=== PATIENT | male | born 1955 | race Caucasian/White ===

== ENCOUNTER → 2020-01-04 09:17 | Outpatient (BNVA) | payer MEDICARE, BC, SELFPAY | PROVIDERS: PCP Family Medicine; Referring Provider Family Medicine; Visit Provider Physical Therapy Assistant | DX: Z12.11 Encounter for screening for malignant neoplasm of colon (principal) ==

== ENCOUNTER 2020-01-11 09:53 | Day surgery (SDC) | payer MEDICARE, BC, SELFPAY ==
[2020-01-11 10:13] VITALS: BP 110/81; PULSE 88; RESP 16; TEMP 36.7; O2SAT 99
[2020-01-11] MEDS: Lactated Ringers 1,000 ML 80 ML IV (10:54)
--- NOTE | 2020-01-11 12:49 | BOWEL_PTH ---
PATIENT: Dawit Guillory LOC: [facility] U#:[id number] AGE/SX: 64/M ROOM: RE01/11/[address]: Nory Villalobos : 1955 BED: DIS: 01/11/2020 SPEC #: [id number] RECD: 01/11/20 15:32 STATUS: CAROLINE REQ #: [id number] BENOIT: 01/11/20 12:[address]: Nory Villalobos DEPT: Surgical Specimen RECD BY: Kristen Delgado ENTERED: 01/11/20 15:35 SP TYPE: Bowel OTHR DR: Power Collins MD Tissues: 1 - BIOPSY BOWEL Procedures: GROSS AND MICRO LEVEL 4 Comments: [id number]
--- NOTE | 2020-01-11 13:03 | W.COLOREPORT ---
Date of service: 01/11/20 Time of Service: 13:03 Colonoscopy Report Date of procedure: 01/11/20 Pre-op diagnosis general: CRC screen Post-op diagnosis procedure note: other Procedure: CE w/cold polypectomy Surgeon: Nory Villalobos Anesthesia proc note operative: MAC Estimated blood loss (mL): 1 Pathology: other Complications: None Disposition: same day Prep: Miralax/Dulcolax Retraction Time: 12mins Procedure Description: After informed consent was obtained the patient was taken to the procedure room and placed in a left decubitous position. Monitors were applied and a time out was done. The patients name, date of , procedure, allergies to medications and metal in their body was reviewed. The patient was then sedated. Once sedated and comfortable a rectal exam was done. External exam was normal. Internal exam revealed a normal sphincter tone and no palpable masses. The prostate nl. The scope was then introduced and retrofelexed. no internal hemorrhoids were identified. The scope was then advanced to the cecum w/o difficulty. The TI and appendiceal orifice were identified. The prep was adequate. The scope was then slowly retracted over 12 minutes back into the rectum. Polyps were removed at rectum-it is removed with a cold biting forcep. All specimen is retrieved and no bleeding is noted. He does have moderate diverticula confined to the sigmoid colon. There is no signs of active bleeding or infection. The rest of the mucosa is pink and healthy.. The scope was removed and the patient was woken up and taken back to Same day surgery in stable condition. The patient tolerated the procedure well and there were no immediate complications. Follow up: The patient should follow up in 5-10years, path pd unless they develop changes in bowel habits or other new gastrointestinal complaints.
--- NOTE | 2020-01-11 13:05 | PDOC.DSDIS_ITS ---
Discharge Plan Disposition Patient Disposition: HOME Condition: Good Discharge Details Reason For Visit: colon scope Attending Provider: Nory Villalobos Primary Care Provider: Power Collins Home Meds and New Rx's Prescriptions: Continued tamsulosin 0.4 mg capsule 0.8 mg PO DAILY Qty: 180 RF: 3 venlafaxine [Effexor XR] 75 mg capsule,extended release 24hr 75 mg PO DAILY Qty: 90 RF: 3 acetaminophen [Tylenol Extra Strength] 500 mg tablet 500 mg PO Q6H PRNRF: 0 ibuprofen 200 mg capsule 200 mg PO Q6H PRNRF: 0 sildenafil [Viagra] 100 mg tablet 100 mg PO daily prn Qty: 30 RF: 5 alprazolam [Xanax] 1 mg tablet 1 mg PO daily prn Qty: 30 RF: 2 dextroamphetamine-amphetamine 10 mg capsule,extended release 24hr 10 - 20 mg PO BID MDD 3 tabs Qty: 90 RF: 0 Discharge Instructions Additional Instructions: Findings: diverticula and small polyp Follow up: We will send you a letter with the results of the pathology in 2 to 3 weeks. Please call if you develop: fevers >101.5 Nausea or Vomiting Abdominal pain that is not transient DAY SURGERY UNIT POST COLONOSCOPY INSTRUCTIONS 1. Because there will be medication in your system for the next 24 hours, you may feel a little sleepy. Your coordination will be affected. Therefore: a. Do not drive or operate dangerous equipment for 24 hours. b. Do not drink alcohol beverages for 24 hours (not even beer). c. Plan to go home and rest for the day. 2. Generally there are no restrictions on your activity after a day or so has gone by, but you may feel a bit fatigued for a few days. 3 After you arrive home you may have a light meal and return to a normal diet as you can tolerate it without feeling sick to your stomach. 4. After surgery, you may feel pain or discomfort. This should be only transient, but if it persists please contact your doctor. 5. If there are any questions regarding the findings of your procedure, please feel free to contact your doctor. 6. If you are unable to contact your doctor with a problem, contact the hospital at [phone]. 7. Continue all your regular medications unless directed otherwise. I understand the above instructions and have no questions. Signature of Patient or Responsible Adult Escort Date/Time Name of Responsible Adult Escort Signature of Nurse Date/Time DIVERTICULAR DISEASE OVERVIEW ? A diverticulum is a pouch-like structure that can form through points of weakness in the muscular wall of the colon (ie, at points where blood vessels pass through the wall). Diverticulosis affects men and women equally. The risk of diverticular disease increases with age. It occurs throughout the world but is seen more commonly in developed countries. WHAT IS DIVERTICULAR DISEASE? Diverticulosis ? Diverticulosis merely describes the presence of diverticula. Diverticulosis is often found during a test done for other reasons, such as flexible sigmoidoscopy, colonoscopy, or barium enema. Most people with diverticulosis have no symptoms and will remain symptom free for the rest of their lives. A person with diverticulosis may have diverticulitis, or diverticular bleeding. Diverticulitis ? Inflammation of a diverticulum (diverticulitis) occurs when there is thinning and breakdown of the diverticular wall. This may be caused by increased pressure within the colon or by hardened particles of stool, which can become lodged within the diverticulum. The symptoms of diverticulitis depend upon the degree of inflammation present. The most common symptom is pain in the left lower abdomen. Other symptoms can include nausea and vomiting, constipation, diarrhea, and urinary symptoms such as pain or burning when urinating or the frequent need to urinate. Diverticulitis is divided into simple and complicated forms. ?Simple diverticulitis, which accounts for 75 percent of cases, is not associated with complications and typically responds to medical treatment without surgery. ?Complicated diverticulitis occurs in 25 percent of cases and usually requires surgery. Complications associated with diverticulitis can include the following: ?Abscess ? a localized collection of pus ?Fistula ? an abnormal tract between two areas that are not normally connected (eg, bowel and bladder) ?Obstruction ? a blockage of the colon ?Peritonitis ? infection involving the space around the abdominal organ ?Sepsis ? overwhelming body-wide infection that can lead to failure of multiple organs Diverticular bleeding ? Diverticular bleeding occurs when a small artery located within a diverticulum is eroded and bleeds into the colon. Diverticular bleeding usually causes painless bleeding from the rectum. In approximately 50 percent of cases, the person will see maroon or bright red blood with bowel movements. Is bleeding with a bowel movement normal? ? It is not normal to see blood in a bowel movement; this can be a sign of several conditions, most of which are not serious (eg, hemorrhoids) but some of which are serious and require immediate treatment. Anyone who sees blood after a bowel movement should consult with their healthcare provider to determine if further testing or evaluation is needed. DIVERTICULOSIS AND DIVERTICULITIS DIAGNOSIS ? Diverticulosis is often found during tests performed for other reasons. ?Barium enema ? This is an x-ray study that uses barium in an enema to view the outline of the lower intestinal tract. This is an older test and has been largely replaced by computed tomography (CT) scan. ?Flexible sigmoidoscopy ? This is an examination of the inside of the sigmoid colon with a thin, flexible tube that contains a camera. ?Colonoscopy ? This is an examination of the inside of the entire colon. ?CT scan ? A CT scan is often used to diagnose diverticulitis and its complications. If diverticulitis (not just diverticulosis) is suspected, the above three tests should not be used because of the risk of perforation. TREATMENT Diverticulosis ? People with diverticulosis who do not have symptoms do not require treatment. However, most clinicians recommend increasing fiber in the diet, which can help to bulk the stools and possibly prevent the development of new diverticula, diverticulitis, or diverticular bleeding. Fiber is not proven to prevent these conditions in all patients but may help to control recurrent episodes in some. Increase fiber ? Fruits and vegetables are a good source of fiber. Fiber content of packaged foods can be calculated by reading the nutrition label. Seeds and nuts ? Patients with diverticular disease have historically been advised to avoid whole pieces of fiber (such as seeds, corn, and nuts) because of concern that these foods could cause an episode of diverticulitis. However, this belief is completely unproven. We do not suggest that patients with diverticulosis avoid seeds, corn, or nuts. Diverticulitis ? Treatment of diverticulitis depends upon how severe your sympt oms are. Home treatment ? If you have mild symptoms of diverticulitis (mild abdominal pain, usually left lower abdomen), you can be treated at home with a clear liquid diet and oral antibiotics. However, if you develop one or more of the following signs or symptoms, you should seek immediate medical attention: ?Temperature >100.1?F (38?C) ?Worsening or severe abdominal pain ?An inability to tolerate fluids Hospital treatment ? If you have moderate to severe symptoms, you may be hospitalized for treatment. During this time, you are not allowed to eat or drink; antibiotics and fluids are given into a vein. If you develop an abscess of the colon, you may require drainage of the abscess (usually performed by placing a drainage tube across the abdominal wall) or by surgically opening the affected area. Surgery ? If you develop a generalized infection in the abdomen (peritonitis), you will usually require an emergency operation. A two-part operation may be necessary in some cases. ?The first operation involves removal of the diseased colon and creation of a colostomy. A colostomy is an opening between the colon and the skin, where a bag is attached to collect waste from the intestine. The lower end of the colon is temporarily sewed closed to allow it to heal. ?Approximately three to six months later, a second operation is performed to reconnect the two parts of the colon and close the opening in the skin. You are then able to empty your bowels through the rectum. Sometimes patients require up to a year to recover from the first operation, depending on how sick they were. In non-emergency situations, the diseased area of the colon can be removed and the two ends of the colon can be reconnected in one operation, without the need for a colostomy. Surgery versus medical therapy ? An operation to remove the diseased area of the colon may be necessary if you do not improve with medical therapy. After an episode of uncomplicated diverticulitis, elective surgery is generally not required as the risk of another attack or requiring emergency surgery is low. However, patients with persistent symptoms attributable to diverticulitis, a history of complicated diverticulitis, or a compromised immune system should be evaluated for possible surgery to prevent another attack. In such patients, another attack has been associated with a higher risk of complications or . Of course, the decision will also depend in part upon your other medical conditions and ability to undergo surgery. In many cases, an elective operation can be performed laparoscopically, using small incisions, rather than the typical vertical (up and down) abdominal incision. Laparoscopic surgery usually allows you to recover more quickly and shortens the hospital stay. After diverticulitis resolves ? After an episode of diverticulitis resolves, if you have not had a recent colonoscopy, the entire length of the colon should be evaluated to determine the extent of disease and to rule out the presence of abnormal lesions such as polyps or cancer. Recommended tests include colonoscopy, barium enema and sigmoidoscopy, or CT colonography. Diverticular bleeding ? Most cases of diverticular bleeding resolve on their own. However, some people will need further testing or treatment to stop bleeding, which may include a colonoscopy, angiography (a treatment that blocks off the bleeding artery), bleeding scan, or surgery. DIVERTICULAR DISEASE PROGNOSIS Diverticulosis ? Over time, diverticulosis may cause no problems or it may cause episodes of bleeding and/or diverticulitis. Approximately 15 to 25 percent of people with diverticulosis will develop diverticulitis, while 5 to 15 percent will develop diverticular bleeding. Diverticulitis ? Approximately 85 percent of people with uncomplicated diver ticulitis will respond to medical treatment, while approximately 15 percent of patients will need an operation. After successful treatment for a first attack of diverticulitis, one-third of patients will remain asymptomatic, one-third will have episodic cramps without diverticulitis, and one-third will go on to have a second attack of diverticulitis. The prognosis tends to remain similar following a second attack of diverticulitis. Only 10 percent of people remain symptom-free after a second attack. Subsequent attacks tend to be of similar severity, not increasing in severity as previously believed. High Fiber Diet What is Dietary Fiber? All fiber comes from plants, bushes, artemio or trees. Of course, the ones that we eat provide us with fruits, vegetables and grains. There are many different types of fiber but the three that are most important to the health of the body are: Insoluble Fiber This fiber does not dissolve in water, nor is it fermented by the bacteria residing in the colon. Rather, it retains water and in so doing, helps to promote a larger, bulkier and more regular bowel activity. This, in turn, may be important in preventing disorder such as diverticulosis and hemorrhoids, and in sweeping out certain toxins and cancer causing carcinogens. Sources of insoluble fiber are: ? whole grain wheat and other whole grains ? corn bran, including popcorn, unflavored and unsweetened ? nuts and seeds ? potatoes and the skins from most fruits from trees such as apples, bananas and avocados ? many green vegetables such as green beans, zucchini, celery and cauliflower ? some fruit plants such as tomatoes and kiwi Soluble Fiber These fibers are fermented or used by the colon bacteria as a food source or nourishment. When these good bacteria grow and thrive, many health benefits occur in both the colon and the body. Soluble fiber is present in some degree in most edible plant foods, but the ones with the most soluble fiber include: ? legumes such as peas and most beans, including soybeans ? oats, rye and barley ? many fruits such as berries, plums, apples bananas and pears ? certain vegetables such as broccoli and carrots ? most root vegetables ? psyllium husk supplement products Prebiotic Soluble Fiber These are relatively newly discovered soluble plant fibers. The technical name for this fiber is inulin or fructan. When these soluble fibers are fermented by the good colon bacteria, some further significant health benefits have been shown to occur by research in many medical centers. These soluble prebiotic fibers occur in significant amounts in: ? asparagus ? yams ? onions ? garlic ? bananas ? leeks ? agave ? chicory and other root vegetables such as [place] artichokes ? wheat, rye and barley (smaller amounts) Benefits of a High Fiber Diet The health benefits of a high fiber diet, consumed on a regular basis and reaching recommended amounts (below), are now fairly well-defined. There are some additional benefits in the early research stage with the prebiotic soluble fibers. What is now known regarding a high fiber diet include: Bowel Regularity A high fiber diet promotes regularity with a softer, bulkier and regular stool pattern. This decreases the chance of hemorrhoids, diverticulosis and perhaps colon cancer. Cholesterol and Reduced Triglycerides The soluble fibers are the ones that will reduce cholesterol levels when used on a regular basis. Psyllium husk and prebiotic soluble fiber will also reduce cholesterol. They may also reduce the incidence of coronary heart disease. Oats, flax seeds and legumes or beans are the recommended fibers. Colon Polyps and Cancer It is still not certain if a high fiber diet helps prevent colon cancer. Considerable research suggests that this may occur. Certainly it makes sense to increase regularity and so speed the movement of cancer causing carcinogens through the bowel. In addition, reducing a heavy meat diet reduces the bile flow from the liver in a favorable way. This, too, reduces the amount of carcinogens that reach and are manufactured in the colon. Finally, a high fiber diet, including prebiotic soluble fiber, increases the integrity and health of the wall of the colon. The risk of cancer may be reduced. Colon Wall Integrity A high fiber diet changes the bacterial makeup of the colon toward a more favorable balance. For instance, it is known that those people with obesity, diabetes type 2 and inflammatory bowel disease have a predominance of bad bacteria in the colon. This, in turn, may render the bowel wall weak and allow bacteria and, indeed, even toxins to seep through. A high fiber diet with a modest reduction in animal and meat products may return the bacterial makeup to a more positive balance. This, in particular, has been seen when the soluble fiber prebiotics are added to the diet. Blood Sugar Soluble fiber such as in legumes (beans), oats and in prebiotic fibers slows the absorption of blood sugar and so helps regulate the sugar in the blood. Ins oluble fiber on a regular basis is associated with reduced risk of type 2 diabetes. Weight Loss High fiber diets are more filling and give a sense of fullness sooner than an animal and meat based diet does. In addition, the soluble prebiotic fibers have been shown to turn off the hunger hormones produced in the wall of the gut and to increase the hormones that give a sense of fullness. Those hormones are made in the wall of the gut. New medical research has shown that the bacterial makeup in the colon in overweight people is abnormal to the extent that they manufacture and absorb almost twice the number of calories through the colon wall as do normals. Prebiotic fibers (below) will help change this hormonal balancein a favorable way. Bacteria and the Function of the Colon The colon finishes the digestive process. Hopefully, the waste products move through in a nice regular manner. Insoluble fibers help this process by retaining water and so producing a bulkier, softer stool, which is easy to pass. The additional role of the colon is to provide a home for an enormous number of micro-organisms, mostly bacteria. Recent research has shown that there are over 1,000 species of bacteria with a total bacterial count ten times the number of cells in the body. These bacteria play a major role in keeping the colon wall itself healthy. In addition, these good bacteria produce a very strong immune system for the body. They significantly increase calcium absorption and bone density. They provide other documented benefits. It is the soluble fibers in the diet that are so effective in stimulating the growth of good colon bacteria. How Much is Enough? The amount of fiber in food is measured in grams. National nutritional authorities recommend the following amounts of dietary fiber daily. Under Age 50 Over Age 50 Men 38 grams 30 grams Women 25 grams 21 grams For a week or so, it is best to tally the amount of fiber you are consuming. Boxed and packaged foods will have the amount of fiber per serving on the nutrition label. Which Fibers and Which Foods are Best? As noted, healthy fiber is only found in plants. The three major categories are whole grains, fruits and vegetables. Whole Grains Wheat, oats, barley, wild or brown rice, amaranth, buckwheat, bulgur, corn, millet, quinoa, rye, sorghum, teff and triticals. By far, wheat, oats and wild or brown rice are most common. Always buy whole grain products. White bread, baked goods and rolls almost always are made from wheat flour. Wheat flour is white because most of the fiber, vitamins and other nutrients have been removed. Try not buy enriched grains. What this means is that simple white flour has had vitamins added to it by the shear operator. The word, enriched, implies a good and healthy product. On the contrary, enriched means that most of the fiber has been removed and a few vitamins added. Fruits Fruits come from trees such as apple and pear or from bushes or artemio. You should eat a wide variety of fruits, preferably with every meal. In many cases, the skin of a fruit such as apple will contain much of the insoluble fiber while the pulp contains most of the soluble fiber. To the extent possible, buy organic fruits as these will have little or no pesticides. Always wash fruit. Vegetables Eat a wide variety of vegetables. They should be a mainstay of lunch and dinners. Frozen vegetables retain as much nutrition and fiber as fresh vegetables. As with fruit, try to buy organic to reduce any residual pesticide ingestion. Wash fresh vegetables thoroughly. Cruciferous vegetables such as broccoli, [place] sprouts and cauliflower contain certain chemicals such as sulforaphane. This substance has very strong anti-cancer properties and should be eaten frequently. Legumes, Beans, Peas and Soybeans These vegetables have plenty of soluble fiber and should be part of a varied vegetable intake. Beans, in particular, contain a certain type of fiber that may lead to harmless gas or bloating. Nuts and Seeds These are rich sources of fiber and are a good substitute for sweets such as candies and baked sweet goods. While nuts and seeds are rich in fiber, they also contain vegetable fat and so can and do add calories. Read the Labels As noted, fresh and frozen foods are usually better. They have good nutrition and few, if any, chemicals added to them. When buying packaged foods and, in particular grains, look for three things: ? The first word on the label should be whole, such as whole wheat or whole grain. ? Check out the calories and the amount of fiber in a serving. ? How many and what other additives or chemicals are added. Fewer is always better. Do you know what each additive does? Some are added not for the benefit of the ballistic technician but rather for manufacturers. These could and do include sugar, artificial flavor, chemicals to prevent oxidation and spoilage, emulsifiers to blend the product. You have to be a lvn lpn. Fiber Facts, Nuggets and Pearls ? For breakfast you can easily get the day started well by using a high fiber, whole grain cereal. Check the labels. Add fruit such as blueberries and bananas. If you are an egg eater, use whole wheat or grain toast. Adding wheat germ gives you a good fiber kick. ? Always use whole grain or wheat with rolls and sandwiches. Does your fast food store not have them? Perhaps you look elsewhere. Eating an occasional black rodrigues or veggie burger provides variety. ? Snacks should consist of fruit and/or nuts. While nuts are loaded with fiber, they are an energy rich food, meaning they have a lot of calories in a small packet. ? Fruit juices should contain pulp. Clear juices such as clear orange, pear or apple juice contain little fiber and have a lot of fructose. Prune juice is usually high in fiber. ? Homemade soups ? adding fresh or frozen vegetables to a chicken or vegetable stock is a good way to start homemade soup. ? Salads ? adding cooked and then chilled vegetables provide great flavoring to almost any salad. Remember, a rubi salad has lots of cooked corn in it. Small slices of apples or oranges and nuts such as chopped walnuts or sliced almonds always adds taste, variety and fiber to almost any salad. ? Fruit ? Try to eat fruit of some type with almost every meal. ? Rethink how you place the various foods on your dinner plate. Reducing the portions of the meat or animal food portion to the side with equal or more portions of vegetables, legumes and fruits portion always allows for more fiber. There was never anything magic about making the meat or animal food portion the main part of the dinner plate. Eating from smaller plates can, over time, trick your mind and director long term care habit of using a dinner plate. Again, there is nothing magic in an 11, 12, or 13 inch dinner plate. Fiber Supplements There are a variety of fiber supplements available on the food or pharmacy shelves. Psyllium This soluble plant fiber has been used in [place] for over 2,000 years. It is a soluble fiber with mucilage in it. This acts to retain a lot of water and also is fermented by colon bacteria. When 7 grams a day are used, it does lower cholesterol. Metamucil in various forms is psyllium. Methyl Cellulose All the cellulose products come from finely ground wood chips which are then treated in a variety of ways such as boiling in acids. Methyl cellulose is an insoluble fiber which does dissolve in water. It is also an emulsifier, meaning it blends oils and water. Citrucel is methyl cellulose (MC). MC may not be appropriate for Crohn?s disease or ulcerative colitis as several medical studies have shown that certain emulsifiers dissolve the mucous lining of the colon in animals prone to Crohn?s disease. This then allows bacteria to invade the underl jose angel tissue. Inulin Inulin is a soluble prebiotic fiber found in many foods and which are fermented mostly in the left side of the colon. It is available in a supplement as generic inulin and in Fiber Choice. Oligofructose FOS These are also prebiotic fibers. They are fermented very quickly in the right side of the colon. Prebiotin This product is a combination of oligofructose, which feeds the bacteria in the right side of the colon and inulin, which does the same in the left side of the colon. There seems to be a benefit for this particular formula based on medical research. Prebiotic Soluble Fiber These may be the healthiest of all the soluble fibers. They grow in many plants and have had a great deal of research done on them in the last 10-15 years. These fibers are found in asparagus, yams and other root vegetables such as chicory, garlic, onion, leeks and in smaller amounts in wheat. This research has shown the following: ? Increase in good and decrease in bad colon bacteria ? Increase calcium absorption and enhanced bone mass ? Enhanced immune system ? Appetite and weight control by changing the hormone appetite signals to the brain ? May decrease colon cancer incidence ? Reduce or correct a leaky colon Eating a wide variety of plant food up to the recommended amount will likely give you enough prebiotic fiber. Supplements such as Prebiotin can be added to the diet. Short Chain Fatty Acids (SCFA) Some rather remarkable research findings have shown that one of the benefits of ingesting a lot of soluble fiber, in particular the prebiotic ones, results in larger amounts of SCFAs in the colon. These SCFAs are made by the good bacteria in the colon such as Bifidobacter and Lactobacillus. These small molecules have been shown to do the following: ? Enhance the health and integrity of the colon wall ? Provide nourishment for the cells that actually line the colon ? Increases the acidity of the colon which is a very real health benefit ? Stabilize blood sugar for diabetics ? Reduce blood cholesterol and triglyceride ? Significantly enhance immunity ? May be a benefit for Crohn?s disease and ulcerative colitis patients Fiber and Gas Everyone has intestinal gas and that is a good thing. It means that bacteria, hopefully the good ones, are thriving. The normal amount of flatus passed each day depends on sex and what is eaten. The normal number of flatus is 10-20 times a day. When the bacteria that make intestinal gases are growing, it also means that other good bacteria are using the same fibers to grow and produce multiple health benefits, including the production of healthy short-chain fatty acids. These substances are produced quietly in the colon and produce many health-related outcomes. Soluble fiber should always be used in a gradual manner. If too much is consumed at any one time, then excess, but harmless, intestinal gas can occur. People with irritable bowel syndrome are particularly prone to bloating and mild cramping. In this instance, soluble fiber in the diet or supplement should be used in small doses and increased gradually. Finally, prebiotic fibers tend to cause the production of short-chain fatty acids which acidify the colon. This, in turn, reduces or stops the growth of bacteria that make the smelly hydrogen sulfide gases that produce noxious flatus. People who consume many vegetables with prebiotics or take a prebiotic fiber supplement often have non-odoriferous flatus. Fiber and Irritable Bowel Syndrome Irritable bowel syndrome (IBS) is one of the most common disorders of the lower digestive tract. The symptoms of IBS can be quite varied. They can be a mix of several symptoms such as constipation, diarrhea, crampy abdominal discomfort, bloating and gas. An attack of IBS can be triggered by emotional tension and anxiety, poor dietary habits and certain medications. It is now known that infections in the intestine can lead to long-term IBS symptoms. Increased amounts of fiber in the diet can help relieve the symptoms of irritable bowel syndrome by producing soft, bulky stools. This helps to normalize the time it takes for the stool to pass through the colon. Recent medical research with newer techniques has shown some surprising and dramatic findings for IBS patients. Specifically, there is a very significant and abnormal shift of bacteria from those that provide health benefits to those bad bacteria that we really do not want in the gut. The technical name for this bad group of bacteria is called Firmicutes. Along with this abnormal bacterial collection, there is a smoldering low-grade inflammation in the gut wall that may contribute to symptoms. The goal for IBS patients should be to gradually increase the soluble dietary fibers in the diet so as to promote the growth of good bacteria and so suppress the bad ones along with the associated inflammation. IBS patients need to be careful of the amount of soluble fiber they consume. The reason for this is that, while the good colon bacteria thrive on these fibers and produce health benefits, other gas-forming bacteria may generate excessive but harmless gas and subsequent bloating. Thus, soluble plant fibers or a dietary prebiotic supplement should be taken in small initial doses and then gradually increased to tolerance. Fiber and Colon Polyps/Cancer Colon cancer is a major health problem. This disease is most common in Western cultures. It is not seen very often in rural cultures where the diet is mostly plant based. Usually, colon cancer starts out as a colon polyp, a benign mushroom-shaped growth. In time it grows, and in some people it becomes cancerous. Colon cancer is usually always curable if polyps are removed when found or if surgery is performed at an early stage. It is now known that people can inherit the risk of developing colon cancer, but diet is important, too. As noted, there is a very low rate of colon cancer in residents of countries where grains are unprocessed and retain their fiber. It seems that in the Western world, cancer-containing agents (carcinogens) remain in contact with the colon wall for a longer time and in higher concentrations. So, a large bulky stool may act to dilute these carcinogens by moving them through the bowel more quickly. Less carcinogenic exposure to the colon may mean fewer colon polyps and less cancer. A very current review of the entire world?s literature on the effect of fiber on colon polyps and cancer prevention has shown rather clearly that for every 10 grams of fiber added to the diet, there is a 10% reduction in incidence of colon cancer. So the recommended 30 gram fiber diet would result in a 30% less chance of getting these tumors. There are also substances produced in the colon by the good bacteria that seem to retard certain pre-cancer factors from developing. They are called short- chain fatty acids (SCFA). See above for description of SCFAs. A high fiber diet increases these substances. So, the combination of dietary fiber and the production of short-chain fatty acids have a clear health benefit. Fiber and Diverticulosis Prolonged, vigorous contraction of the colon over a long period of time may result in diverticulosis. This increased pressure causes small and, eventually, larger ballooning pockets to form. These pockets by themselves cause no problem. However, sometimes they become infected (diverticulitis) or even break open (perforate) causing infection or inflammation within the abdomen (peritonitis). A high fiber diet increases the bulk in the stool and thereby reduces the pressure within the colon. By so doing, the formation of pockets may be reduced or possibly even stopped. In the past, many physicians were fearful that seeds as in tomatoes, nuts or berries were harmful and could get inside these pockets and rattle around, causing damage. We now know that this has never been the case and that these foods contain lots of fiber and are actually beneficial for diverticulosis pat ients. Certain bulking agents such as psyllium are traditional types of bulk producing supplements. Psyllium is a soluble fiber. Combining it with insoluble fiber as in wheat bran or corn bran (no gluten) can enhance this bulking effect even more. A product containing a prebiotic, psyllium and wheat bran is probably a very good combination for bowel regularity. Prebiotin Regularity/Diverticulosis is one such product. Inflammatory Bowel Disease (IBD) IBD means Crohn?s Disease (CD) or Ulcerative Colitis (UC). CD is an inflammation of the lower small bowel and/or the colon. Bacteria actually invade and cause inflammation in the entire wall of the intestine. UC, on the other hand, is an inflammation just of the lining of the colon. It usually starts in the rectum and left colon and may spread to the entire colon from there. It is now known that in both CD and UC that the bacterial make up is abnormal. This means that there are significantly more of the bad bacteria present than the good ones. These abnormal bacteria are called Firmicutes. Fiber and Crohn?s Disease There is now some information in the medical literature on what type of diet may be harmful and what may help Crohn?s Disease. A reduction in red meat is likely helpful. So is reducing the fat in the diet, including vegetable oils. More importantly, people who had low fiber ingestion in the diet had a greater chance of getting CD. So, a gradual increase in the amount of fiber is likely helpful in hopefully preventing CD. This should always be done in conjunction with the physician. It should be done gradually and should include soluble fibers which fertilize the best colon bacteria. The good bacteria grow and push out the bad ones. These good bacteria provide short chain fatty acids, which can help heal the bowel wall. Prebiotics such as Prebiotin are available. Fiber and Ulcerative Colitis We still do not have strong evidence in the medical literature on what is the best diet for UC. Eating plenty of soluble fiber, including prebiotic fibers will nourish the best colon bacteria. It is hoped that this will result in a decrease in the bad or Firmicutes bacteria. It is well-known that when the good bacteria proliferate that they produce lots of acid substances called short chain fatty acids (SCFA). The SCFAs actually nourish the cells of the colon wall, the very ones that become inflamed in UC. In addition, when the colon contents become acid, the smelly sulfide gases are not produced and the flatus becomes less noxious and may even have no smell at all. This may have a benefi cial effect on the inflammation. Prebiotics such as Prebiotin are the best type of soluble fiber Activity:: No lifting over 20 pounds or strenuous activity x24 hours Diet:: Small light meals x24 hours Discharge Orders Discharge Orders: Discharge Order (Routine); Ordered 01/11/20 Ordered By: Nory Villalobos
[2020-01-11 13:31] VITALS: BP 115/69; PULSE 70; RESP 16; TEMP 36.4; O2SAT 99
== END 2020-01-11 13:45 | disposition home or self-care (01) ==
PROVIDERS: PCP Family Medicine; Visit Provider Surgery
PROC: 0DJD8ZZ Inspection of Lower Intestinal Tract, Via Natural or Artificial Opening Endoscopic (ICD-10-PCS; CPT 45378; principal; 2020-01-11 10:30)
DX: Z12.11 Encounter for screening for malignant neoplasm of colon (principal); K62.1 Rectal polyp
CPT/HCPCS: 45380; 88305

== ENCOUNTER 2020-09-20 03:53 | Outpatient (CLI) | payer MEDICARE, BC, SELFPAY | END 2020-09-20 03:54 | disposition home or self-care (01) | LOC: LBO 03:53 | PROVIDERS: PCP Family Medicine; Visit Provider Urology | DX: Z85.51 Personal history of malignant neoplasm of bladder (principal); Z01.818 Encounter for other preprocedural examination; R82.998 Other abnormal findings in urine | CPT/HCPCS: 87086 ==

== ENCOUNTER 2020-11-14 02:58 | Outpatient (CLI) | payer MEDICARE, BC, SELFPAY ==
[2020-11-14 12:15] LABS: AST 14 U/L (15-37); Calculated LDL 198 mg/dL (<100); Cholesterol 266 mg/dL (<200); Glucose 107 mg/dL (74-106); HDL Cholesterol 48 mg/dL (40-60); Triglyceride 100 mg/dL (<150)
[2020-11-14 17:45] LABS: PSA, Screening 2.7 ng/mL (0.0-4.5)
== END 2020-11-14 02:59 | disposition home or self-care (01) ==
LOC: LBO 02:58
PROVIDERS: PCP Family Medicine; Visit Provider Family Medicine
DX: K76.0 Fatty (change of) liver, not elsewhere classified (principal); R73.9 Hyperglycemia, unspecified; E78.5 Hyperlipidemia, unspecified; Z12.5 Encounter for screening for malignant neoplasm of prostate; C67.9 Malignant neoplasm of bladder, unspecified
CPT/HCPCS: 36415; 80061; 82947; 84153; 84450

== ENCOUNTER → 2023-01-12 13:21 | Outpatient (BNVA) | payer MEDICARE, BC, SELFPAY | PROVIDERS: PCP Family Medicine; Referring Provider Family Medicine; Visit Provider Surgery | DX: K42.9 Umbilical hernia without obstruction or gangrene (principal) | CPT/HCPCS: 99202 ==

== ENCOUNTER → 2023-03-29 02:41 | Outpatient (CLI) | payer MEDICARE, BC, SELFPAY ==
--- NOTE | 2023-03-29 09:28 | DI.RAD_ITS ---
Exam(s) XR KNEE RT 3V AP,LAT,NOEMI EXAM: XR KNEE RT 3V AP,LAT,NOEMI CLINICAL HISTORY: rt knee pain, ACUTE, M25.569. TECHNIQUE: 2D digital imaging was performed. Three views. COMPARISON: No exams were available for comparison FINDINGS: BONES: No acute fracture is present. No bony destructive lesion is seen. Minimal spurring at the medi al femoral tibial joint. JOINTS: The knee is normally aligned. No joint effusion is seen. Joint spaces are maintained. SOFT TISSUE: Normal. IMPRESSION: Minimal degenerative changes. DATA REPOSITORY: RADIATION DOSE DELIVERED:
--- NOTE | 2023-03-29 09:28 | DI.RAD_ITS ---
Exam(s) XR HIP RT COMPLETE AP PELVIS EXAM: XR HIP RT COMPLETE AP PELVIS CLINICAL HISTORY: rt hip paiin, M25.551. TECHNIQUE: 2D digital imaging was performed. Two views COMPARISON: No exams were available for comparison FINDINGS: BONES: No acute fracture is present. No bony destructive lesion is seen. JOINTS: No dislocation present. Mild bilateral hip joint space narrowing. Minimal periarticular sp urring. SI joints and pubic symphysis are unremarkable. SOFT TISSUE: Normal. IMPRESSION: Mild degenerative changes of both hips. DATA REPOSITORY: RADIATION DOSE DELIVERED:
== END ==
PROVIDERS: PCP Family Medicine; Visit Provider Family Medicine
DX: M17.11 Unilateral primary osteoarthritis, right knee (principal); M16.0 Bilateral primary osteoarthritis of hip
CPT/HCPCS: 73562; 73502

== ENCOUNTER 2023-03-29 14:10 | Outpatient (CLI) | payer MEDICARE, BC, SELFPAY ==
[2023-03-29 10:11] LABS: Calculated LDL 194 mg/dL (<100); Cholesterol 260 mg/dL (<200); HDL Cholesterol 47 mg/dL (40-60); Triglyceride 96 mg/dL (<150)
--- OUTSIDE RECORDS SUMMARY | 2023-03-29 14:15 | XMS_ITS | Continuity of Care Document ---
Author Name Unknown Organization [facility] Address [address] [place] [id number]- Care Team Providers Care Defective Cigarette Slitter Name Role Phone CHRISTIAN PRASAD Primary Care Physician [phone] Encounter BVT Date(s): 09/28/19 - 09/28/[address] [address]- Encounter Diagnosis H/O primary malignant neoplasm of urinary bladder(Discharge Diagnosis) - 09/28/19 Discharge Disposition: Home with Home Health Care Attending Physician: PORSHA EMMANUEL Admitting Physician: PORSHA EMMANUEL Allergies, Adverse Reactions, Alerts No Known Medication Allergies Substance Reaction Severity Status [place] Hives Active seasonal Active [place] Oil Hives Active Functional Status 09/28/19 Recent Travel History No recent travel Family Member Travel History No recent t ravel COVID-19 Screening None 09/20/19 History of Falls in Last 3 Months [place] No ADLs Independent Ambulatory Devices None Medications ALPRAZolam 1 mg oral tablet 1 mg = 1 tab(s), Oral, TID, PRN PRN for anxiety, 0 Refill(s) Start Date: 09/28/19 Status: Ordered dextroamphetamine 10 mg oral capsule, extended release 10 mg = 1 cap(s), Oral, TID, FILL DATE: 10/06/17, # 270 cap(s), 0 Refill(s), 10/06/17 Start Date: 10/06/17 Stop Date: 11/05/17 Status: Ordered ibuprofen 200 mg oral capsule 400 mg = 2 cap(s), Oral, q6hr, PRN, 0 Refill(s) Start Date: 01/25/17 Status: Ordered tamsulosin 0.4 mg oral capsule 0.8 mg = 2 cap(s), Oral, Daily, # 180 cap(s), 3 Refill(s), Pharmacy: [id number], 2 cap(s) Oral Daily Start Date: 08/09/18 Status: Ordered Tylenol 325 mg oral tablet 650 mg = 2 tab(s), Oral, q4hr, PRN PRN Pain, 0 Refill(s) Start Date: 01/25/17 Status: Ordered venlafaxine 75 mg oral tablet 75 mg = 1 tab(s), Oral, Daily, 0 Refill(s) Start Date: 09/20/19 Status: Ordered Viagra 100 mg oral tablet 100 mg, Oral, As Directed, # 18 tab(s), 3 Refill(s), Pharmacy: [facility], 100 mg Oral As Directed Start Date: 09/27/17 Status: Ordered Mental Status 09/28/19 Level of Consciousness Alert, Sleeping Problem List Condition Effective Dates Status Health Status Inform ant Anxiety(Confirmed) 1 Active ADD (attention deficit disorder)(Confirmed) Active DDD (degenerative disc disea se), lumbar(Confirmed) Active Personal history of bladder cancer(Confirmed) Active Malignant neoplasm of bladder(Confirmed) Active Smoker(Confirmed) Active Bladder neoplasm(Confirmed) Active 1situational Procedures Procedure Date Related Diagnosis Body Site Status Cystoscopy 02/04/17 Completed right inguinal hernia repair 04/2016 Completed right knee arthroscopy 04/2016 Co mpleted cystoscopy, TURBT's 1 12/2015 Com pleted Dental surgical procedure 2 04/09/15 Completed Cystoscopy 3 11/05/11 Completed left inguinal hernia repair 2005 Completed Vasectomy 01/08/05 Completed right shoulder biceps tendon repair 09/2004 Completed right shoulder arthroscopy 2004 Completed 1multiple times 20+ 2full upper and partial lower 3<2 cm 12/19/15 benign 4right shoulder scope 2003 Results Laboratory List Name Date Urinalysis with Culture, if indicated [facility] (UA w Culture if Ind Standard) 09/28/19 Most recent to oldest [Reference Range]: 1 Urine Culture? No (09/28/19 9:05 AM) UA Bili [Negative] Negative (09/28/19 9:05 AM) UA Blood [Negative] Negative (09/28/19 9:05 AM) UA Color Yellow (09/28/19 9:05 AM) UA Glucose [Negative] Negative (09/28/19 9:05 AM) UA Ketones [Neg] Neg (09/28/19 9:05 AM) UA Leuk Est [Negative] Negative (09/28/19 9:05 AM) UA Nitrite [Negative] Negative (09/28/19 9:05 AM) UA Protein [Negative] Negative (09/28/19:05 AM) UA Urobilinogen 0.2 EU/dL (09/28/19 9:05 AM) UA pH 5.5 (09/28/19 9:05 AM) UA Spec Grav >=1.030 *ABN* (09/28/19 9:05 AM) Micro? [Not Indicated] Not Indicated (09/28/19:05 AM) UA Clarity Clear (09/28/19:05 AM) Vital Signs Most recent to oldest [Reference Range]: 1 2 3 Temperature Temporal [36.3-37.8 DegC] 36.5 DegC (09/28/19 10:00 AM) 36.5 DegC (09/28/19 9:38 AM) 36.5 DegC (09/28/19 9:10 AM) Heart Rate Monitored [60-100 bpm] 61 bpm (09/28/19 10:00 AM) 61 bpm (09/28/19:38 AM) 58 bpm *LOW* (09/28/19 9:10 AM) Respiratory Rate [14-20 br/min] 18 br/min (09/28/19 10:00 AM) 18 br/min (09/28/19:38 AM) 18 br/min (09/28/19 9:10 AM) Blood Pressure [90-140/60-90 mmHg] 115/75mmHg (09/28/19 10:00 AM) 115/75mmHg (09/28/19 9:38 AM) 112/75mmHg (09/28/19 9:10 AM) SpO2 [92-100 %] 99 % (09/28/19 10:00 AM) 99 % (09/28/19 9:38 AM) 99 % (09/28/19 9:10 AM) Height 175.3 cm (09/28/19 6:09 AM) 175.3 cm (09/20/19 3:11 PM) Height/Length Measured (inches) 69 in (09/28/19 6:09 AM) 69 in (09/20/19 3:11 PM) Height/Length Estimated 175.3 cm (09/28/19 6:09 AM) 175.3 cm (09/20/19 3:11 PM) Weight 78.93 kg (09/28/19 6:09 AM) Weight Measured (lbs) 173.646 lb (09/28/19 6:09 AM) Weight Estimated 77.1 kg (09/28/19 6:09 AM) 77.1 kg (09/20/19 3:11 PM) Weight Dosing 78.93 kg (09/28/19 6:09 AM) BSA Measured 1.96 m2 (09/28/19 6:09 AM) BSA Estimated 2 m2 (09/28/19 6:09 AM) 2 m2 (09/20/19 3:11 PM) Body Mass Index Estimated 25.09 kg/m2 (09/28/19 6:09 AM) 25.09 kg/m2 (09/20/19 3:11 PM) Body Mass Index 25.68 kg/m2 (09/28/19 6:09 AM) Social History Social History Type Response Smoking Status Cigars or pipes david y within last 30 days; Started at age: [age]; entered on: 09/25/19 Sex
--- OUTSIDE RECORDS SUMMARY | 2023-03-29 14:15 | XMS_ITS | Continuity of Care Document ---
Author Name Unknown Organization [facility] Address [address] [place] [id number]- Care Team Providers Care Hotel Custodian Name Role Phone CHRISTIAN PRASAD Primary Care Physician [phone] Encounter BVT [facility] [id number] Date(s): 09/25/19 - 09/25/[address] [address]- Encounter Diagnosis Close exposure to COVID-19 virus(Discharge Diagnosis) - 09/25/19 Discharge Disposition: Home or Self Care Attending Physician: Panfilo Bolivar Admitting Physician: Panfilo Bolivar Allergies, Adverse Reactions, Alerts No Known Medication Allergies Substance Reaction Severity Status [place] Hives Active seasonal Active [place] Oil Hives Active Assessment and Plan Future Appointments Medications dextroamphetamine 10 mg oral capsule, extended release [...] Daily, # 180 cap(s), 3 Refill(s), Pharmacy: [id number], 2 cap(s) Oral Daily Start Date: 08/09/18 [...] Directed, # 18 tab(s), 3 Refill(s), Pharmacy: [facility], 100 mg Oral As Directed Start Date: 09/27/17 Status: Ordered Problem List Condition Effective Dates Status Health [...] 3<2 cm 12/19/15 benign 4right shoulder scope 2004 Results Laboratory List Name Date COVID-19 Testing FA 09/25/19 Most recent to oldest [Reference Range]: 1 Patient admitted or to be admitted? FA No (09/25/19 10:10 AM) Social History Social History Type Response Smoking Status Cigars or pipes david y within last 30 days; Started at age: 15.0; entered on: 09/25/19 Sex
--- OUTSIDE RECORDS SUMMARY | 2023-03-29 14:15 | XMS_ITS | Continuity of Care Document ---
Author Name Unknown Organization [facility] Address [address] [place] [address]- Care Team Providers Care Chainstitch Seat Joiner Name Role Phone CHRISTIAN PRASAD Primary Care Physician [phone] Encounter BVT [facility] [id number] Date(s): 09/25/19 - 09/25/19 [facility] [address] [place] [address] [place] [address] Encounter Diagnosis Malignant neoplasm of bladder(Discharge Diagnosis) - 09/25/19 Discharge Disposition: Home or Self Care Attending Physician: ANAIS ROMERO Allergies, Adverse Reactions, Alerts No Known Medication Allergies Substance Reaction Severity Status [place] Hives Active seasonal Active [place] Oil Hives Active Assessment and Plan Extracted from: Title:URO-Office Visit Note Author:JEN ROMERO EVERARDO Date:09/25/19 Malignant neoplasm of bladde r??C67.9 He is currently scheduled to undergo a cystoscopy??with possible TURBT??for??routine surveillance of bladder cancer. ??He generally receives??this procedure under general anesthesia due to severe anxiety.?? The procedure was explained to him in detail and all of his questions were answered. Addendum by PORSHA EMMANUEL on September 25, 2019 11:44:51 EDT I have seen??and evaluated the patient today.?? I agree with the description of the problem above and the assessment and plan.?? He will undergo??surveillance cystoscopy??with possible TURBT??later this week.?? We discussed the procedure in detail, including possible complications. ??All of his questions were answered and he wishes to proceed. Future Appointments Functional Status 09/25/19 Recent Travel History No recent travel Family Member Travel History No recent t ravel COVID-19 Screening None Medications dextroamphetamine 10 mg oral capsule, extended [...] Daily, # 180 cap(s), 3 Refill(s), Pharmacy: [id number], 2 cap(s) Oral Daily [...] Directed, # 18 tab(s), 3 Refill(s), Pharmacy: [facility], 100 mg Oral As Directed [...] cm 12/19/15 benign 4right shoulder scope 2003 Vital Signs Most recent to oldest [Reference Range]: 1 Temperature Temporal Artery [36.3-37.8 D egC] 36.7 DegC (09/25/19 11:04 AM) Peripheral Pulse Rate [60-100 bpm] 82 bp m (09/25/19 11:04 AM) Blood Pressure [90-140/60-90 mmHg] 120/8 2mmHg (09/25/19 11:04 AM) BP Site Left arm (09/25/19 11:04 AM) Pulse Site Pulse Oximetry (09/25/19 11:04 AM) SpO2 [92-100 %] 98 % (09/25/19 11:04 AM) Height 175.3 cm (09/25/19 11:04 AM) Height/Length Measured (inches) 69 in (09/25/19 11:04 AM) Weight 79.2 kg (09/25/19 11:04 AM) Weight Measured (lbs) 174.24 lb (09/25/19 11:04 AM) BSA Measured 1.96 m2 (09/25/19 11:04 AM) Body Mass Index 25.77 kg/m2 (09/25/19 11:04 AM) Social History Social History Type Response Smoking Status Cigars or pipes david y within last 30 days; Started at age: 15.0; entered on: 09/25/19 Sex
--- OUTSIDE RECORDS SUMMARY | 2023-03-29 14:15 | XMS_ITS | Continuity of Care Document ---
Author Name Unknown Organization [facility] Address [address] [place] [id number]- Care Team Providers Care Solar Sales Rep Name Role Phone CHRISTAIN PRASAD Primary Care Physician [phone] Encounter BVT Date(s): 09/25/19 - 09/25/[address] [id number]- Encounter Diagnosis Pre-operative cardiovascular examination(Discharge Diagnosis) - 09/25/19 Discharge Disposition: Home or Self Care Attending Physician: PORSHA EMMANUEL Admitting Physician: PORSHA EMMANUEL Allergies, Adverse Reactions, Alerts No Known Medication Allergies Substance Reaction Severity Status Lamoure Hives Active seasonal Active Jber Oil Hives Active Assessment and Plan Future Appointments Diagnostic Tests Pending * Culture Urine 09/25/19 Medications dextroamphetamine 10 mg oral capsule, extended [...] Daily, # 180 cap(s), 3 Refill(s), Pharmacy: [facility], 2 cap(s) Oral Daily Start [...] Directed, # 18 tab(s), 3 Refill(s), Pharmacy: [facility], 100 mg Oral As Directed [...] scope 2004 Results Laboratory List Name Date Automated Differential Standard 09/25/19 Basic Metabolic Panel Standard (BMP Ralf dard) 09/25/19 CBC w/Diff Standard 09/25/19 Most recent to oldest [Reference Range]: 1 NR Auto Pct [0.00-0.20 %] 0.00 % (09/25/19 11:54 AM) Creatinine [0.70-1.20 mg/dL] 0.79 mg/dL (09/25/19 11:54 AM) AGAP [10.0-18.0 mmol/L] 14.1 mmol/L (09/25/19 11:54 AM) Glucose Lvl [70-100 mg/dL] 120 mg/dL *HI* (09/25/19 11:54 AM) Hct [40.1-51.0 %] 46.1 % (09/25/19 11:54 AM) Hgb [13.7-17.5 gm/dL] 15.7 gm/dL (09/25/19 11:54 AM) Lymph Auto [15.0-45.0 %] 24.4 % (09/25/19 11:54 AM) MCH [25.6-32.2 pg] 31.7 pg (09/25/19:54 AM) MCHC [32.3-36.5 gm/dL] 34.1 gm/dL (09/25/19 11:54 AM) MCV [79.0-92.2 fL] 93.1 fL *HI* (09/25/19:54 AM) [place] Auto [4.0-14.0 %] 10.1 % (09/25/19 11:54 AM) MPV [9.4-12.4 fL] 9.2 fL *LOW* (09/25/19:54 AM) Neutro Auto [50.0-75.0 %] 63.6 % (09/25/19 11:54 AM) Osmolality [268.0-291.0 mOsm/kg] 279.2 m Osm/kg (09/25/19 11:54 AM) Platelet [150-400 x10(3)/uL] 262 x10(3)/ uL (09/25/19 11:54 AM) RBC [4.63-6.08 x10(6)/uL] 4.95 x10(6)/uL (09/25/19 11:54 AM) Sodium Lvl [136-145 mmol/L] 139 mmol/L (09/25/19 11:54 AM) Basophil Auto [0.0-2.0 %] 0.3 % (09/25/19 11:54 AM) CO2 [22-29 mmol/L] 26 mmol/L (09/25/19 11:54 AM) Eos Auto [0.0-8.0 %] 1.1 % (09/25/19 11:54 AM) WBC [4.2-9.1 x10(3)/uL] 7.6 x10(3)/uL (09/25/19 11:54 AM) BUN [6-23 mg/dL] 14 mg/dL (09/25/19 11:54 AM) Calcium Lvl [8.6-10.2 mg/dL] 9.2 mg/dL (09/25/19 11:54 AM) Chloride [98-107 mmol/L] 103 mmol/L (09/25/19 11:54 AM) Potassium Lvl [3.5-5.1 mmol/L] 4.1 mmol/ L (09/25/19 11:54 AM) Lymph Absolute [1.30-3.60 x10(3)/uL] 1.8 6 x10(3)/uL (09/25/19 11:54 AM) [place] Absolute [0.30-0.80 x10(3)/uL] 0.77 x10(3)/uL (09/25/19 11:54 AM) Eos Absolute [0.04-0.36 x10(3)/uL] 0.08 x10(3)/uL (09/25/19 11:54 AM) NRBC Absolute [0.00-0.01 x10(3)/uL] 0.00 x10(3)/uL (09/25/19 11:54 AM) Neutro Absolute [1.78-5.38 x10(3)/uL] 4. 84 x10(3)/uL (09/25/19 11:54 AM) RDW-CV [11.6-14.4 %] 13.1 % (09/25/19 11:54 AM) GFR >60 mL/min/1.73 m2 *NA* (09/25/19 11:54 AM) GFR NonAfrican Scottish >60 mL/min/1.73 m2 *NA* (09/25/19 11:54 AM) Immature Gran % [0.00-2.30 %] 0.50 % (09/25/19 11:54 AM) Immature Gran Absolute 0.04 x10(3)/uL *NA* (09/25/19 11:54 AM) Basophil Absolute [0.00-0.10 x10(3)/uL] 0.02 x10(3)/uL (09/25/19 11:54 AM) Radiology Reports true* Exam Date Time Procedure Performing Provider Status 09/25/19 12:39 PM XR Chest 2 Views Padgett, Hailey L; Au th (Verified) Notes: (XR Chest 2 Views) Reason For Exam: preop bladder neoplasm- scheduled for cystoscopy, possible biopsy OR 09/28/19 XR Chest 2 Views EXAMINATION: XR Chest 2 Views CLINICAL HISTORY: preop bladder neoplasm- scheduled for cystoscopy, possible biopsy OR 09/28/19;Z01.818 Encounter for other preprocedural examination TECHNIQUE: PA and lateral views of the chest. COMPARISON: 01/12/2018. FINDINGS: Linear atelectasis versus scarring at the lung bases by the posterior costophrenic angles. The cardiomediastinal silhouette, kelsea, pulmonary vessels, and pleura are within normal limits. No significant osseous findings are seen. IMPRESSION: No active cardiopulmonary pathology identified. Thank you for letting us participate in the care of this patient. For questions regarding this report, please contact the number below. Final Dictated: 09/25/2019 12:40 pm ZOË HILLMAN Signed (Electronic Signature): 09/25/2019 12:40 pm Signed by: ZOË HILLMAN Social History Social History Type Response Smoking Status Cigars or pipes david y within last 30 days; Started at age: [age]; entered on: 09/25/19 Sex
== END 2023-03-29 14:11 | disposition home or self-care (01) ==
LOC: LBO 14:10
PROVIDERS: PCP Family Medicine; Visit Provider Family Medicine
DX: E11.51 Type 2 diabetes mellitus with diabetic peripheral angiopathy without gangrene (principal); E78.5 Hyperlipidemia, unspecified
CPT/HCPCS: 36415; 73562; 80061; 73502; 83036

== ENCOUNTER 2024-01-19 13:04 | Emergency (ER) | payer MEDICARE, BC, SELFPAY ==
[2024-01-19 13:05] VITALS: BP 127/97; PULSE 80; RESP 12; TEMP 36.2; O2SAT 97
--- NOTE | 2024-01-19 13:15 | DI.CT_ITS ---
Exam(s) CT RENAL COLIC WO EXAM: CT RENAL COLIC WO CT RENAL COLIC WO pain spurs CLINICAL HISTORY: right flank pain. TECHNIQUE: Imaging Protocol: Axial computed tomography images with coronal and sagittal reformatted images were created and reviewed. COMPARISON: No exams were available for comparison FINDINGS: Lung Bases: Scarring versus atelectasis at the anterior inferior right middle lobe and lingula. The heart is enlarged. Liver: Normal density. No measurable mass. Gallbladder and biliary tract: No radiodense calculus. No biliary ductal dilation. Pancreas: No abnormal calcifications or inflammatory process. Spleen: Normal size. Kidneys: Normal size, contour and axis.No radiodense stones or obstructive uropathy. No masses seen. Adrenal glands: No mass is seen. Lymph nodes: Within normal limits. Vasculature: Abdominal aorta non-dilated. Bladder:No stone. No gross wall thickening. No evidence of mass. Bowel: No obstruction. No bowel wall thickening. Appendix is normal. Prominent diverticulosis of the lower descending and sigmoid colon. No evidence of diverticulitis. Peritoneal cavity: No ascites.No free air. No focal collection. No mesenteric inflammatory response. Reproductive organs: Prostate mildly enlarged. Bones: Degenerative changes greatest at L2-3, L4-5 and L5-S1. Soft Tissues: Fatty containing umbilical hernia. IMPRESSION: No evidence of urinary tract calculi or hydronephrosis. No acute abnormality in the abdomen or pelvis. RADIATION DOSE DELIVERED: 424.79mGy.cm Total DLP 424.79mGy.cm Total DLP DATA REPOSITORY: All CT scans at this facility are submitted to the National Radiology Data Registry (NRDR) Dose Index Registry (DIR) with the [employer] (ACR). RADIATION OPTIMIZATION: All CT scans at this facility use at least one of these dose optimization te chniques: automated exposure control; mA and/or kV adjustment per patient size (includes targeted exa ms where dose is matched to clinical indication); or iterative reconstruction.
--- NOTE | 2024-01-19 13:21 | W.ED.GENAD ---
Discharge Plan Disposition Patient Disposition: Home Condition: Stable Discharge Details Clinical Impression: Right flank pain Primary Care Provider: Power Collins ED Provider: Dawit Blanco [place] Meds and New Rx's Prescriptions: New ciprofloxacin HCl 500 mg tablet 500 mg PO BID Qty: 14 0RF Continued acetaminophen [Tylenol Extra Strength] 500 mg tablet 500 mg PO Q6H PRN ibuprofen 200 mg capsule 200 mg PO Q6H PRN tamsulosin 0.4 mg capsule 0.8 mg PO DAILY Qty: 180 3RF tadalafil 20 mg tablet 10 - 20 mg PO DAILY PRN (Reason: sexual activity) Qty: 30 3RF Rx Instructions: administer approximately 30min before sexual activity; do not use more than 1 dose per 24hrs venlafaxine [Effexor XR] 75 mg capsule,extended release 24hr 75 mg PO DAILY Qty: 90 3RF dextroamphetamine-amphetamine 10 mg tablet 10 - 20 mg PO BID MDD 3 pills Qty: 84 0RF Rx Instructions: 10 mg AM; 20 mg PM alprazolam [Xanax] 1 mg tablet 1 mg PO daily prn Qty: 15 0RF epinephrine 0.3 mg/0.3 mL auto-injector 0.3 mg IM PRN Patient Comments: USE DIRECTED Discharge Instructions Additional Instructions: Your blood work and CAT scan did not show any concerning findings. Your urine did have signs of infection Take the antibiotic as prescribed. You can take 1000 mg of acetaminophen and 600 mg of ibuprofen every 6 hours as needed Follow-up with your primary care provider within 1 week if symptoms continue If you feel more ill, have severe worsening pain or high fevers or persistent vomiting return to the emergency department for reevaluation HPI General Mode of arrival: wheelchair. Date/Time Provider Initiated Documentation: 01/19/24 13:07. Limitations to Documentation: no limitations. Information obtained by: patient. History of Present Illness 68 year old M presents to the emergency department with the chief complaint of right flank pain, described as severe, with intensity rated at 10. Quality is described as constant, and is localized to the back. Patient reports no radiation. Patient started experiencing this day(s) (2) and it has been constant. No relieving factors improve symptom(s), No exacerbating factors reported . Patient notes no other symptoms.. Patient did receive the following treatments prior to arrival, NSAID Related Data Home Medications ?Medication ?Instructions ?Recorded ?Confirmed acetaminophen 500 mg tablet 500 mg PO Q6H PRN 01/04/20 01/19/24 (Tylenol Extra Strength) ibuprofen 200 mg capsule 200 mg PO Q6H PRN 01/04/20 01/19/24 tamsulosin 0.4 mg capsule 0.8 mg (2 x 0.4 mg) PO DAILY #180 08/03/23 01/19/24 tab-caps tadalafil 20 mg tablet 10 - 20 mg (0.5 - 1 x 20 mg) PO 08/04/23 01/19/24 DAILY PRN sexual activity #30 tabs venlafaxine 75 mg capsule,extended 75 mg PO DAILY #90 caps 10/30/23 01/19/24 release 24 hr (Effexor XR) alprazolam 1 mg tablet (Xanax) 1 mg PO daily prn #15 tab-caps 12/23/23 01/19/24 dextroamphetamine-amphetamine 10 10 - 20 mg (1 - 2 x 10 mg) PO BID 12/23/23 01/19/24 mg tablet #84 tabs ciprofloxacin HCl 500 mg tablet 500 mg PO BID #14 tabs 01/19/24 epinephrine 0.3 mg/0.3 mL 0.3 mg IM PRN 01/19/24 injection, auto-injector Previous Rx's ?Medication ?Instructions ?Recorded tamsulosin 0.4 mg capsule 0.8 mg (2 x 0.4 mg) PO DAILY #180 08/03/23 tab-caps tadalafil 20 mg tablet 10 - 20 mg (0.5 - 1 x 20 mg) PO 08/04/23 DAILY PRN sexual activity #30 tabs venlafaxine 75 mg capsule,extended 75 mg PO DAILY #90 caps 10/30/23 release 24 hr (Effexor XR) alprazolam 1 mg tablet (Xanax) 1 mg PO daily prn #15 tab-caps 12/23/23 dextroamphetamine-amphetamine 10 10 - 20 mg (1 - 2 x 10 mg) PO BID 12/23/23 mg tablet #84 tabs ciprofloxacin HCl 500 mg tablet 500 mg PO BID #14 tabs 01/19/24 Allergies Allergy/AdvReac Type Severity Reaction Status Date / Time peach Allergy Intermediate HIVES Verified 01/19/24 13:09 almond Allergy Unknown HIVES Verified 01/19/24 13:09 sildenafil (From Viagra) AdvReac Mild Headache Verified 01/19/24 13:09 General Stated Complaint: FlankPain IRIS: 3 Review of Systems All systems reviewed & are unremarkable except as noted in HPI and below Constitutional Constitutional: Denies chills, Denies fever(s) and Denies weakness Cardiovascular Cardiovascular: Denies chest pain and Denies dyspnea Respiratory Respiratory: Denies cough and Denies dyspnea Gastrointestinal Gastrointestinal: Denies abdominal pain, Denies nausea and Denies vomiting Musculoskeletal Musculoskeletal: Reports back pain and Denies joint swelling Neurologic Neurologic: Denies weakness Exam Const Orientation: alert HENMT Head: normal to inspection Ears: external ears normal General nose exam: external nose normal Mouth: moist mucous membranes Eyes General: appearance normal, both eyes and all related structures Neck Neck: normal visual inspection Resp Effort & Inspection: normal respiratory effort and able to speak in complete sentences Cardio Rate: regular rate GI Palpation: soft and nontender Back/Spine/Pelvis Back: CVA tenderness Skin General skin exam: no rashes or lesions noted Neuro General: patient alert and patient oriented x3 Extrem General: normal to inspection Psych Mental Status: mental status grossly normal Course Vital Signs Vital signs: Vital Signs Temperature 36.2 C L 01/19/24 13:05 Pulse 80 01/19/24 13:05 Respiratory Rate 12 01/19/24 13:05 Blood Pressure 127/97 H 01/19/24 13:05 Pulse Oximetry 97 01/19/24 13:05 Temperature 36.2 C L 01/19/24 13:05 Pulse 80 01/19/24 13:05 Respiratory Rate 12 01/19/24 13:05 Respiratory Effort Normal 01/19/24 13:12 Blood Pressure 127/97 H 01/19/24 13:05 Pulse Oximetry 97 01/19/24 13:05 Oxygen Delivery Method Room Air 01/19/24 13:05 Oxygen Flow Rate 0 01/19/24 13:05 Pain Level 9 01/19/24 13:05 Medical Decision Making 5-year-old male who states he has a history of kidney stones years ago, hyperlipidemia, who comes in with chief complaint of right mid to upper back pain in the CVA area for several days. He denies any vomiting or fevers. He is alert and oriented on arrival appears in pain holding his right mid back. He has right CVA tenderness, soft nontender abdomen. Given location of pain concern for Néstor versus kidney stone, will check CBC, CMP and also CT renal colic along with UA to further evaluate. labs unremarkable other then UA showing likely uti, CT unremarkable. Suspect he has pyelo, he is not septic and feels better tolerating po so feel he can be discharged for outpatient management. CEftriaxone given, oral antibiotics prescribed, return precautions given Differential Diagnosis Differential Diagnosis: Stone, musculoskeletal back pain Imaging Data Radiologic Study: Attestation: I personally reviewed and interpreted this imaging study as follows: Imaging: CT Scan Radiologist's impression: Patient Name: Dawit Guillory Unit #: [id number] Loc: ER Ordering Provider: Dawit Blanco M.D. Status: [facility] ER Primary Care Provider: Power Collins M.D. Date of Exam: 01/19/24 Sex: M : 1955 Age: 68 Exam(s) a CT:CT renal colic wo Exam(s) CT RENAL COLIC WO EXAM: CT RENAL COLIC WO CT RENAL COLIC WO pain spurs CLINICAL HISTORY: right flank pain. TECHNIQUE: Imaging Protocol: Axial computed tomography images with coronal and sagittal reformatted images were created and reviewed. COMPARISON: No exams were available for comparison FINDINGS: Lung Bases: Scarring versus atelectasis at the anterior inferior right middle lobe and lingula. The heart is enlarged. Liver: Normal density. No measurable mass. Gallbladder and biliary tract: No radiodense calculus. No biliary ductal dilation. Pancreas: No abnormal calcifications or inflammatory process. Spleen: Normal size. Kidneys: Normal size, contour and axis.No radiodense stones or obstructive uropathy. No masses seen. Adrenal glands: No mass is seen. Lymph nodes: Within normal limits. Vasculature: Abdominal aorta non-dilated. Bladder:No stone. No gross wall thickening. No evidence of mass. Bowel: No obstruction. No bowel wall thickening. Appendix is normal. Prominent diverticulosis of the lower descending and sigmoid colon. No evidence of diverticulitis. Peritoneal cavity: No ascites.No free air. No focal collection. No mesenteric inflammatory response. Reproductive organs: Prostate mildly enlarged. Bones: Degenerative changes greatest at L2-3, L4-5 and L5-S1. Soft Tissues: Fatty containing umbilical hernia. IMPRESSION: No evidence of urinary tract calculi or hydronephrosis. No acute abnormality in the abdomen or pelvis. Lab Data Lab results reviewed: Yes I reviewed the patient's lab results. 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 Astrid Villalobos, repeat colo 10 years Cystoscopy 06/02/12, 02/04/12, 11/05/11, 05/28/11, 02/26/11, 11/20/10, 2010, 2009 Cystoscopy w/ Bladder Bx 11/05/11- LEFT BX URETH History of colonoscopy (~01/11/20) Meniscectomy [address] ALVAREZ Repair of inguinal hernia (01/13/06) LEFT; DR. SMITH Repair, Tendon or Muscle BICEP TENDON REPAIR-2001 Shoulder Surgery 11/2003 Tooth extraction 04/2015; FULL UPPER AND PARTIAL LOWER TURBT 2011; DR. CARTER [address] Tillman Vasectomy 01/2005 Family History Father , 72 Essential hypertension Depression Heart disease Hyperlipidemia Cancer Sister Scoliosis Essential hypertension Sister , age 67 Hyperlipidemia Hypertension Paternal Grandfather , 72 Alcohol abuse Maternal Grandmother , 95 Depression Brother No problems noted. Maternal Grandfather , 96 No problems noted. Paternal Grandmother , 72 No problems noted. Mother , age 95 Dementia Social History Smoking/Tobacco Use Status: Current every day Tobacco Type: pipe Tobacco: How many years used: 50 Smokeless tobacco user: other Quit status: not considering quitting Second Hand Exposure: Yes Smoking risk assessment performed?: Yes Alcohol Intake: current Alcohol Intake frequency: a few times a week Alcohol type: beer Drug use: Never Substance use type: does not use Caregiver/Support person: Yes Household members: spouse Housing: house Communication Needs: None Do you need help understanding health information?: Rarely Pets and animals: Yes Pets and animals: cat(s) and dog(s) Sexually active: Yes Do you think of yourself as: straight/heterosexual Current gender identity: male What is your relationship status?: How often do you talk on the phone with friends or family?: three or more times per week How often do you get together with friends or relatives?: twice per week How often do you attend pentecostalism or judaism services?: 1-3 times per year Do you belong to any clubs or organized social groups?: yes Panel score (0-1 are the most socially isolated patients): 3 Duration: 15-30 minutes/day Frequency: 3-4 times per week Humera/Mu-Ism: No preference Special humera needs: No Seatbelt use: always Helmet use: Yes Helmet use: sometimes Drive intox or ride w/intox armored car guard and driver: No Do you feel safe at home: Yes Do you feel safe in your relationship?: Yes
[2024-01-19 13:44] LABS: Abs Immature Grans 0.05 10^3/uL (0.0-0.06); Absolute Basophil Count 0.05 10^3/uL (0.0-0.2); Absolute Eosinophil Count 0.18 10^3/uL (0.0-0.7); Absolute Lymphocyte Count 2.41 10^3/uL (1.2-3.4); Absolute Monocyte Count 0.85 10^3/uL (0.1-0.8); Absolute Neutrophil Count 6.62 10^3/uL (1.2-6.7); Basophils % 0.5 %; Eosinophils % 1.8 %; HCT 49.4 % (40.0-50.0); HGB 16.7 g/dL (13.5-17.5); Immature Grans % 0.5 %; Lymphocytes % 23.7 %; MCH 32.2 pg (27.0-33.0); MCHC 33.8 % (32.0-36.0); MCV 95 fL (80-95); MPV 8.8 fL (8.0-11.0); Monocytes % 8.4 %; Neutrophils % 65.1 %; Platelet Count 279 10^3/uL (130-400); RBC 5.19 10^6/uL (4.36-5.78); RDW 13.7 % (11.8-14.1); RDW-SD 48.3 fL; WBC 10.16 10^3/uL (4.4-10.8)
[2024-01-19] MEDS: Ketorolac 15 MG/ML VIAL IVP (13:57)
[2024-01-19] MEDS: HYDROmorphone 2 MG/ML SYR 1 MG IVP ×2 (13:57→15:11)
[2024-01-19] MEDS: Normal Saline 1,000 ML 1000 ML IV (14:01)
[2024-01-19 14:08] LABS: ALT 17 U/L (16-63); AST 14 U/L (15-37); Albumin 3.7 g/dL (3.4-5.0); Alkaline Phosphatase 77 U/L (46-116); Anion Gap 8.9 mmol/L (3-11); BUN 18 mg/dL (7-18); Bilirubin, Total 0.36 mg/dL (0.2-1.0); CO2 27.1 mmol/L (21.0-32.0); CREATININE 0.9 mg/dL (0.70-1.30); Calcium 9.5 mg/dL (8.5-10.1); Chloride 105 mmol/L (98-107); Estimated GFR 91.88 (mL/min/1.73m2); Glucose 100 mg/dL (74-106); Lipase 55 U/L (16-77); Magnesium 2.2 mg/dL (1.8-2.4); Potassium 4.5 mmol/L (3.5-5.1); Sodium 141 mmol/L (136-145); Total Protein 7.7 g/dL (6.4-8.2)
[2024-01-19 15:16] VITALS: BP 124/78; PULSE 78; O2SAT 96
[2024-01-19 15:23] LABS: Bilirubin Negative (Negative); Blood Negative (Negative); Clarity Clear (Clear); Glucose Negative (Negative); Ketones Negative (Negative); Leukocyte Esterase Small (Negative); Nitrite Negative (Negative); Specific Gravity 1.025 (1.005-1.025); Urobilinogen 0.2 mg/dL (Up to 0.2); pH 5.5 (5-8)
[2024-01-19 15:31] VITALS: BP 128/97; PULSE 75; O2SAT 94
[2024-01-19 15:33] LABS: Bacteria Rare HPF (Negative); C & S Indicated? Yes; Casts Negative LPF (Negative); Crystals Negative HPF (Negative); Epithelial Cells Rare HPF (Negative); Mucus Moderate (Negative); RBC 0-2 HPF (0-2); WBC 20-50 HPF (0-5)
[2024-01-19] MEDS: cefTRIAXone 2 GM/50 ML BAG IVPB (15:55)
[2024-01-19 16:00] VITALS: BP 135/84; PULSE 71; O2SAT 99
== END 2024-01-19 16:36 | disposition home or self-care (01) ==
PROVIDERS: Emergency Provider Emergency Medicine; PCP Family Medicine
DX: R10.11 Right upper quadrant pain (principal); Z87.442 Personal history of urinary calculi
CPT/HCPCS: 36415; 80053; 83690; 96361; 96365; 96375; 96376; 99284; 74176; 81003; 81015; 83735; 85025; 87086; 99283; J0696; J1170; J1885

== ENCOUNTER → 2024-01-25 11:25 | Outpatient (BNVA) | payer MEDICARE, BC, SELFPAY | PROVIDERS: PCP Family Medicine; Referring Provider Family Medicine; Visit Provider Surgery | DX: K42.9 Umbilical hernia without obstruction or gangrene (principal) | CPT/HCPCS: 99213 ==

== ENCOUNTER 2024-02-16 06:06 | Day surgery (SDC) | payer MEDICARE, BC, SELFPAY ==
--- NOTE | 2024-02-15 16:39 | PDOC.DSDIS_ITS ---
Date of service: 02/16/24 Time of Service: 08:48 Discharge Plan Disposition Patient Disposition: Home Condition: Good Discharge Details Reason For Visit: Laparoscopic umbilical hernia repair Attending Provider: Blaise Barraza Primary Care Provider: Power Collins Home Meds and New Rx's Prescriptions: Continued acetaminophen [Tylenol Extra Strength] 500 mg tablet 500 mg PO Q6H PRN ibuprofen 200 mg capsule 200 mg PO Q6H PRN prednisone 20 mg tablet 40 mg PO DAILY Qty: 10 0RF oxycodone 5 mg tablet 5 mg PO BID MDD 10mg PRN (Reason: pain) Qty: 30 0RF tamsulosin 0.4 mg capsule 0.8 mg PO DAILY Qty: 180 3RF tadalafil 20 mg tablet 10 - 20 mg PO DAILY PRN (Reason: sexual activity) Qty: 30 3RF Rx Instructions: administer approximately 30min before sexual activity; do not use more than 1 dose per 24hrs venlafaxine [Effexor XR] 75 mg capsule,extended release 24hr 75 mg PO DAILY Qty: 90 3RF alprazolam [Xanax] 1 mg tablet 1 mg PO daily prn Qty: 15 0RF dextroamphetamine-amphetamine 10 mg tablet 10 - 20 mg PO BID MDD 3 pills Qty: 84 0RF Rx Instructions: 10 mg AM; 20 mg PM epinephrine 0.3 mg/0.3 mL auto-injector 0.3 mg IM PRN Patient Comments: USE DIRECTED ciprofloxacin HCl 500 mg tablet 500 mg PO BID Qty: 14 0RF Discharge Instructions Additional Instructions: Dawit, we were able to repair your hernia today just like we talked about. Everything went very smoothly. I hope you are comfortable during the procedure and that your pain afterwards is not too bad. Once you get home today, I would like you to be up and moving around a little bit. You should be walking to and from the bathroom, and doing some very light exercise to keep the blood flowing. Avoid lifting anything heavier than a gallon of milk. Expect to have some pain around your bellybutton as some of the numbing medications wear off. I recommend using Tylenol and ibuprofen, in addition to heating pads and ice packs. I also provided a prescription for stronger pain medication if needed. I look forward to seeing you in the office in follow-up, but if you need anything in the meantime, please do not hesitate to call. 1. Resume all of your regular medications. 2. Alternate heating pads and ice packs over your incisions if needed for pain. 3. Use [id number] Tylenol and ibuprofen for pain. Alternate them every 6 hours for the first 2 days [id number]. Then use them as needed. Use the prescription for tramadol if needed for more severe pain.. 4. Leave bandages in place for 24 hours, then remove. 5. Shower with warm soapy water. Pat dry. Use a bandaid if needed to protect your clothing. 6. No soaking or tub baths until I see you in the office. 7. No heavy lifting until I see you in the office. 8. Call the office (or go directly to the emergency room after hours) if you notice any of the following: Develop chills (warm to touch), or if you have a thermometer and your temperature is above 101 Difficulty breathing or difficultly swallowing Persistent vomiting Any bleeding ? exceeding one tablespoon 9. Call your physician if the site where your intravenous was started becomes red, swollen, painful, and warm to touch. Referrals: Blaise Barraza MD [ [facility]FF [facility]YS[facility]IAN] - Activity:: No heavy lifting Remove Dressings/Wound Care:: 24 hours Shower/Bathe:: 24 hours Diet:: As Tolerated Discharge Orders Discharge Orders: Discharge Order (Routine); Ordered 02/15/24 Ordered By: Blaise Barraza
--- NOTE | 2024-02-15 16:43 | W.PM.DSUDISC ---
Date of service: 02/16/24 Discharge Plan Disposition Patient Disposition: Home Condition: Good Discharge Details Reason For Visit: Laparoscopic umbilical hernia repair Attending Provider: Blaise Barraza Primary Care Provider: Power Collins Home Meds and New Rx's Prescriptions: Continued acetaminophen [Tylenol Extra Strength] 500 mg tablet 500 mg PO Q6H PRN ibuprofen 200 mg capsule 200 mg PO Q6H PRN prednisone 20 mg tablet 40 mg PO DAILY Qty: 10 0RF oxycodone 5 mg tablet 5 mg PO BID MDD 10mg PRN (Reason: pain) Qty: 30 0RF tamsulosin 0.4 mg capsule 0.8 mg PO DAILY Qty: 180 3RF tadalafil 20 mg tablet 10 - 20 mg PO DAILY PRN (Reason: sexual activity) Qty: 30 3RF Rx Instructions: administer approximately 30min before sexual activity; do not use more than 1 dose per 24hrs venlafaxine [Effexor XR] 75 mg capsule,extended release 24hr 75 mg PO DAILY Qty: 90 3RF alprazolam [Xanax] 1 mg tablet 1 mg PO daily prn Qty: 15 0RF dextroamphetamine-amphetamine 10 mg tablet 10 - 20 mg PO BID MDD 3 pills Qty: 84 0RF Rx Instructions: 10 mg AM; 20 mg PM epinephrine 0.3 mg/0.3 mL auto-injector 0.3 mg IM PRN Patient Comments: USE DIRECTED ciprofloxacin HCl 500 mg tablet 500 mg PO BID Qty: 14 0RF Discharge Instructions Additional Instructions: 1. Resume all of your regular medications. 2. Alternate heating pads and ice packs as needed over the incision sites for pain. 3. Use [id number] Tylenol and ibuprofen. Alternate these every 6 hours for the first 2 days, then use as needed. Use the prescription for [] if needed for more severe pain. 4. Leave bandage in place for 24 hours, then remove. 5. Shower with warm soapy water. Pat dry. Use a bandaid if needed to protect your clothing. 6. No soaking or tub baths until I see you in the office. 7. No heavy lifting until I see you in the office. 8. Call the office (or go directly to the emergency room after hours) if you notice any of the following: Develop chills (warm to touch), or if you have a thermometer and your temperature is above 101 Difficulty breathing or difficultly swallowing Persistent vomiting Any bleeding ? exceeding one tablespoon 9. Call your physician if the site where your intravenous was started becomes red, swollen, painful, and warm to touch. Activity:: No heavy lifting Remove Dressings/Wound Care:: 24 hours Shower/Bathe:: 24 hours Diet:: As Tolerated
--- NOTE | 2024-02-15 16:44 | W.PM.OP ---
Date of service: 02/16/24 Time of Service: 08:51 Operative Note Operative Note DATE OF PROCEDURE: 02/16/24 PRE-OP DIAGNOSIS: Umbilical hernia POST-OP DIAGNOSIS: same PROCEDURE: Laparoscopic umbilical hernia repair with mesh SURGEON: Blaise Barraza DIET COUNSELOR: Tali Perez ANESTHESIA TYPE: Local By Surgeon and General LMA/ETT Refer to Anesthesia Record ESTIMATED BLOOD LOSS: 10 PATHOLOGY: none sent COMPLICATIONS: None Patient was transported to: PACU Patient's condition: stable Implants: Bard Ventralight ST hernia mesh Indications: Dawit is a 5-year-old male with symptomatic umbilical hernia Findings: Umbilical hernia Procedure Description: Dawit was brought back to the operating room, and moved over to the OR table. Great care was taken to make sure he was padded and supported appropriately. Next, general tracheal anesthesia was induced in the usual fashion. The left arm was then tucked at his side. I then prepped and draped the anterior abdominal wall. I anesthetized the skin in the left upper quadrant, and using a 5 mm optical viewing port, establish pneumoperitoneum. Once the peritoneum was fully insufflated, 5 mm 30 degree scope was introduced down into the peritoneal cavity. The underlying viscera were examined. There was no evidence of any injury from entry. Next, with the assistance of the laparoscope, I performed bilateral tap blocks using local anesthetic with Exparel. The umbilical hernia was easily visualized. At this time it was empty. I then placed a 12 mm port in the left mid abdomen under the vision of the scope. Next, using the LigaSure, I dissected the peritoneum from the underside of the fascial edge. Once this dissection was complete, I measured out the hernia for an appropriate mesh. Approximately 11 x 11 cm provided more than enough overlap to the underside of the fascia. Therefore, the 11.[address] mesh was delivered into the peritoneum. Small incision was made over the umbilicus so that the echo positioning system could elevate the mesh up against the anterior abdominal wall. Once this was in place, laparoscopic tacker was used to secure the mesh in the appropriate location. Great care was taken to ensure appropriate spacing of the tackers, again maintaining full overlap of the fascial edge. Once this was complete, I removed the positioning system out through the 12 mm port. The port itself was then removed. It was hemostatic. The fascial edge was grasped as the pneumoperitoneum was emptied. The 5 mm port in the left upper quadrant was removed and the fascial defect for the 12 mm port was closed with a [id number] 0 Vicryl suture. Bandages were applied as the Dawit was awoken from the anesthetic and transferred to the recovery unit.
[2024-02-16] VITALS (43 sets, daily range): BP systolic 72–108; BP diastolic 45–81; PULSE 62–74; RESP 6–31; TEMP 36.3–36.5; O2SAT 91–100; BMI 28.1
--- NOTE | 2024-02-16 06:51 | W.ANESPRE ---
General Info Date of Service Date Performed: 02/16/24 Height: 5 ft 6.5 in Weight: 80.4 kg Body Mass Index (BMI): 28.1 Surgical Procedure: Operation Date: 02/16/24 07:40 Proposed Procedure Side Surgeon p Hernia Umbilical Laparoscopic w/Mesh Blaise Barraza MD Meds Allergies and Home Medications Allergies Allergy/AdvReac Type Severity Reaction Status Date / Time peach Allergy Intermediate HIVES Verified 02/16/24 06:20 almond Allergy Unknown HIVES Verified 02/16/24 06:20 sildenafil (From Viagra) AdvReac Mild Headache Verified 02/16/24 06:20 Home Medication ?Medication ?Instructions ?Recorded acetaminophen 500 mg tablet 500 mg PO Q6H PRN 01/04/20 (Tylenol Extra Strength) ibuprofen 200 mg capsule 200 mg PO Q6H PRN 01/04/20 tamsulosin 0.4 mg capsule 0.8 mg (2 x 0.4 mg) PO DAILY #180 08/03/23 tab-caps tadalafil 20 mg tablet 10 - 20 mg (0.5 - 1 x 20 mg) PO 08/04/23 DAILY PRN sexual activity #30 tabs venlafaxine 75 mg capsule,extended 75 mg PO DAILY #90 caps 10/30/23 release 24 hr (Effexor XR) ciprofloxacin HCl 500 mg tablet 500 mg PO BID #14 tabs 01/19/24 epinephrine 0.3 mg/0.3 mL 0.3 mg IM PRN 01/19/24 injection, auto-injector oxycodone 5 mg tablet 5 mg PO BID PRN pain #30 tabs 01/21/24 prednisone 20 mg tablet 40 mg (2 x 20 mg) PO DAILY #10 tabs 01/21/24 alprazolam 1 mg tablet (Xanax) 1 mg PO daily prn #15 tab-caps 01/25/24 dextroamphetamine-amphetamine 10 10 - 20 mg (1 - 2 x 10 mg) PO BID 01/25/24 mg tablet #84 tabs Current Visit Medications: Current Medications Generic Name Dose Route Start Last Admin Trade Name Freq PRN Reason Stop Dose Admin Acetaminophen 1,000 mg 02/16/24 06:00 Acetaminophen 500 Mg Tab PO 02/16/24 23:59 PREOP NINA Celecoxib 200 mg 02/16/24 06:00 Celecoxib 200 Mg Cap PO 02/16/24 23:59 PREOP NINA Gabapentin 300 mg 02/16/24 06:00 Gabapentin 300 Mg Cap PO 02/16/24 23:59 PREOP NINA Hydromorphone HCl 0.2 mg 02/15/24 16:47 Hydromorphone 2 Mg/Ml Syr IVP 03/16/24 16:46 Q1H PRN PRN Ringer's Solution 1,000 mls @ 80 mls/hr 02/16/24 06:00 IV 02/16/24 23:59 [facility] IV Miscellaneous Supplies 1 each 02/16/24 06:00 Iv Access IV 02/16/24 23:59 DIRECTED NINA Sodium Chloride 0 ml 02/16/24 06:00 Normal Saline Flush 10 Ml Syr IV 02/16/24 23:59 PRN PRN Sodium Chloride 0 ml 02/16/24 06:00 Normal Saline 10 Ml Vial IJ 02/16/24 23:59 DIRECTED PRN Sterile Water 0 ml 02/16/24 06:00 Water,Injection,Sterile 10 Ml Vial IJ 02/16/24 23:59 DIRECTED PRN Tramadol HCl 50 mg 02/15/24 16:47 Tramadol 50 Mg Tab PO 03/16/24 16:46 Q6H PRN PRN Pain PFSH Active Problems Active Problems: Problem Status Onset Code Right flank pain Acute R10.9 Acute knee pain Acute M25.569 Hip pain, right Acute M25.551 Umbilical hernia Acute K42.9 Erectile dysfunction Acute N52.9 Prediabetes Acute R73.03 Hyperlipemia Acute E78.5 Tobacco abuse Acute Z72.0 Lyme disease Acute A69.20 Depression Chronic F32.9 Conjunctivitis Acute H10.9 Chronic anxiety Acute F41.9 Bladder stones Acute N21.0 Bladder cancer Acute C67.9 Attention deficit disorder (ADD) without hyperactivity Acute F98.8 Acute medial meniscus tear Acute 03/27/16 S83.249A Mood disorder Acute F39 Pneumonia Acute J18.9 Allergic conjunctivitis of both eyes Acute H10.13 Medical History Medical History Comments:: VASOVAGAL W/ SYNCOPE: PT. REQUESTS LAYING DOWN WITH STARTING IV, COOL WASH CLOTH ON FORHEAD- MOST SKILLED IV STARTER 1ST TIME Surgical History Surgical History Colon polyp, hyperplastic (~01/11/20) Dr. Astrid Villalobos, repeat colo 10 years Cystoscopy 06/02/12, 02/04/12, 11/05/11, 05/28/11, 02/26/11, 11/20/10, 2010, 2009 Cystoscopy w/ Bladder Bx 11/05/11- LEFT BX URETH History of colonoscopy (~01/11/20) Meniscectomy [address] ALVAREZ Repair of inguinal hernia (01/13/06) LEFT; DR. SMITH Repair, Tendon or Muscle BICEP TENDON REPAIR-2001 Shoulder Surgery 11/2003 Tooth extraction 04/2015; FULL UPPER AND PARTIAL LOWER TURBT 2011; DR. CARTER [address] Tillman Vasectomy 01/2005 Tobacco Smoking/Tobacco Use Status: Current every day Tobacco Type: pipe Smokeless tobacco user: other Passive smoking exposure: No Second hand exposure: Yes Alcohol Alcohol Intake: current Alcohol intake frequency: a few times a week Alcohol type: beer Substance Use Substance use: Never Substance use type: does not use Vital Signs and Lab Results Vital Signs Most Recent Vital Signs in EMR: Most Recent Vital Signs Temp Pulse Resp BP Pulse Ox 36.5 C 73 16 108/81 95 02/16/24 06:26 02/16/24 06:26 02/16/24 06:26 02/16/24 06:26 02/16/24 06:26 Lab Results Blood Type / Crossmatch: No Data to Display Complete Blood Count: White Blood Count 10.16 10^3/uL (4.4-10.8) 01/19/24 13:35 Red Blood Count 5.19 10^6/uL (4.36-5.78) 01/19/24 13:35 Hemoglobin 16.7 g/dL (13.5-17.5) 01/19/24 13:35 Hematocrit 49.4 % (40.0-50.0) 01/19/24 13:35 Platelet Count 279 10^3/uL (130-400) 01/19/24 13:35 Complete Metabolic Panel: Sodium 141 mmol/L (136-145) 01/19/24 13:35 Potassium 4.5 mmol/L (3.5-5.1) 01/19/24 13:35 Chloride 105 mmol/L (98-107) 01/19/24 13:35 Carbon Dioxide 27.1 mmol/L (21.0-32.0) 01/19/24 13:35 BUN 18 mg/dL (7-18) 01/19/24 13:35 Creatinine 0.9 mg/dL (0.70-1.30) 01/19/24 13:35 Est GFR (CKD-EPI 2020) 91.88 (mL/min/1.73m2) 01/19/24 13:35 Magnesium 2.2 mg/dL (1.8-2.4) 01/19/24 13:35 Calcium 9.5 mg/dL (8.5-10.1) 01/19/24 13:35 Albumin 3.7 g/dL (3.4-5.0) 01/19/24 13:35 Glucose 100 mg/dL (74-106) 01/19/24 13:35 Liver Function Panel: Alanine Aminotransferase (ALT/SGPT) 17 U/L (16-63) 01/19/24 13:35 Aspartate Amino Transf (AST/SGOT) 14 U/L (15-37) L 01/19/24 13:35 Coagulation Panel: No Data to Display Cardiac Panel: No Data to Display Arterial Blood Gas: No Data to Display Venous Blood Gas: No Data to Display Pancreas Panel: Lipase 55 U/L (16-77) 01/19/24 13:35 Thyroid Panel: No Data to Display Infectious Disease: No Data to Display Blood Cultures: No Data to Display Toxicology Panel: No Data to Display Anesthesia Assessment and Plan Anesthesia History Personal History: No History of Anesthesia Complications Family History: No Family History of Anesthesia Complications Exercise Tolerance Exercise Tolerance: Metabolic Equivalents>4 Pertinent Negatives Pertinent Negatives: No Symptoms of GERD Cardiac & Pulmonary Exam Cardiac Exam: Normal S1/S2 Heart Sounds Pulmonary Exam: Clear Bilateral Breath Sounds Implantable Cardiac Device Does patient have a Pacemaker or an ICD?: No Airway Exam Known Difficult Airway: No Mallampati Class: 2 Mouth Opening: Normal (> 3cm) Thyromental Distance: Greater than 3 cm Neck Range of Motion: Full ROM Neck Circumference: Normal Teeth Condition: Removable Dentures/Plates Upper and Removable Dentures/Plates Lower ASA Classification ASA Score: ASA 2 Emergency Case?: No NPO Status NPO Status: NPO Clears >2 hours, Solids >8 hours Anesthesia Plan Resuscitation Status: Full Code Anesthesia Technique: General Anesthesia Airway Planned: Endotracheal Tube Monitors Used: Standard Monitors
[2024-02-16] MEDS: Lactated Ringers 1,000 ML 80 ML IV ×2 (07:02→09:09)
[2024-02-16] MEDS: Gabapentin 300 MG CAP PO (07:03)
[2024-02-16] MEDS: Celecoxib 200 MG CAP PO (07:03)
[2024-02-16] MEDS: Acetaminophen 500 MG TAB 1000 MG PO (07:03)
[2024-02-16] MEDS: Normal Saline 20 ML VIAL (07:56)
[2024-02-16] MEDS: Bupivacaine LIPOSOME/PF 133 MG/10 ML VIAL IJ (07:56)
[2024-02-16] MEDS: Bupivacaine 0.25% Pres-Free 10 ML VIAL (07:56)
[2024-02-16] MEDS: Bupivacaine 0.25% Pres-Free 30 ML VIAL (07:56)
[2024-02-16] MEDS: ePHEDrine 25 MG/5 ML Syringe IVP ×3 (08:52→09:56)
[2024-02-16] MEDS: HYDROmorphone 2 MG/ML SYR IVP ×2 (09:27→09:49)
[2024-02-16] MEDS: Normal Saline 10 ML VIAL IJ (09:27)
--- NOTE | 2024-02-16 14:49 | W.ANESPOSTOP ---
Postoperative Evaluation Date, Time and Location Date Performed: 02/16/24 Time Performed: 14:49 Patient Location: Day Surgery Unit Vital Signs Most Recent Imported Vital Signs: Most Recent Vital Signs Temp Pulse Resp BP Pulse Ox 36.5 C 74 16 107/64 95 02/16/24 10:46 02/16/24 10:46 02/16/24 10:46 02/16/24 10:46 02/16/24 12:13 Pain Score Most Recent Pain Score: Most Recent Pain Score Pain Level 6 02/16/24 10:00 Assessment Mental Status: Awake (Alert & Oriented to Patient Baseline) Airway and Respiratory Function: Patent airway with normal (patient baseline) respiratory exam Cardiovascular Function: Hemodynamically Stable Hydration Status: Adequately Hydrated Nausea & Vomiting: No Nausea or Vomiting Pain: Pain is tolerable per patient Peripheral Nerve Block: Patient did not receive a nerve block
== END 2024-02-16 13:15 | disposition home or self-care (01) ==
LOC: SUR 06:06
PROVIDERS: PCP Family Medicine; Visit Provider Surgery
PROC: (CPT 49650; principal; 2024-02-16 07:30)
DX: K42.9 Umbilical hernia without obstruction or gangrene (principal)
CPT/HCPCS: 49593; C1781; C9290; J0665; J0690; J1100; J1171; J2003; J2371; J2405; J2704

== ENCOUNTER → 2024-02-29 11:29 | Outpatient (BNVA) | payer MEDICARE, BC, SELFPAY | PROVIDERS: PCP Family Medicine; Referring Provider Family Medicine; Visit Provider Surgery | DX: Z48.817 Encounter for surgical aftercare following surgery on the skin and subcutaneous tissue (principal); L98.9 Disorder of the skin and subcutaneous tissue, unspecified | CPT/HCPCS: 99213 ==

== ENCOUNTER 2024-03-13 01:29 | Outpatient (CLI) | payer MEDICARE, BC, SELFPAY ==
--- NOTE | 2024-03-13 09:15 | DI.CT_ITS ---
Exam(s) CT HEAD WO/W EXAM: CT HEAD WO/W CLINICAL HISTORY: bony lesion in center of forehead,skull lesion,m89.9. TECHNIQUE: Imaging Protocol: Axial computed tomography images with coronal and sagittal reformatted images were created and reviewed. CONTRAST MATERIAL: Intravenous: Omnipaque 350 Contrast volume:100 ml COMPARISON: No exams were available for comparison FINDINGS: Ventricles and Extra axial spaces: Normal in size and morphology for the patient's age. Hemorrhage: None. Cerebral parenchyma: Normal. Enhancement: No suspicious enhancement. Normal arterial and venous enhancement. Midline shift: None. Brainstem/Cerebellum: Normal. Calvarium: There is a small smoothly marginated bone lesion arising from the anterior right frontal b one with the same attenuation as the cortex, consistent with a benign osteoma. It measures 8 x 3 x 6 millimeters. There is no associated bony destruction. Remainder of the calvarium is unremarkable. Visualized Paranasal sinuses/Mastoids: Clear. IMPRESSION: Normal CT scan of the brain. 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 RADIATION DOSE DELIVERED: Total DLP DATA REPOSITORY: All CT scans at this facility are submitted to the National Radiology Data Registry (NRDR) Dose Index Registry (DIR) with the [employer] (ACR). RADIATION OPTIMIZATION: All CT scans at this facility use at least one of these dose optimization te chniques: automated exposure control; mA and/or kV adjustment per patient size (includes targeted exa ms where dose is matched to clinical indication); or iterative reconstruction.
[2024-03-13 13:13] LABS: Estimated GFR 80.97 (mL/min/1.73m2)
[2024-03-13] MEDS: Omnipaque 350 MG/ML 100 ML BTL IJ (13:30)
[2024-03-13] MEDS: Normal Saline - Diluent 50 ML VIAL IJ (13:31)
== END 2024-03-13 01:49 ==
PROVIDERS: PCP Family Medicine; Visit Provider Surgery
DX: D16.4 Benign neoplasm of bones of skull and face (principal)
CPT/HCPCS: 70470; 82565; J3490

== ENCOUNTER 2024-08-04 10:06 | Outpatient (CLI) | payer MEDICARE, BC, SELFPAY ==
[2024-08-04 10:05] LABS: Hemoglobin A1C 6.1 % (<5.7)
[2024-08-04 22:18] LABS: PSA, Screening 1.8 ng/mL (<=6.5)
[2024-08-07 11:50] LABS: HBs Antibody, Quant <3.1 mIU/mL (See Note); Hep B Surface Ab Negative (See Note); Hepatitis B Core Antibody Negative (Negative); Hepatitis B Surface Antigen Negative (Negative)
[2024-08-07 12:00] LABS: Hepatitis C Ab w Rflx HCV PCR Negative (Negative)
== END 2024-08-04 10:07 | disposition home or self-care (01) ==
PROVIDERS: PCP Family Medicine; Visit Provider Family Medicine
DX: R73.9 Hyperglycemia, unspecified (principal); Z11.59 Encounter for screening for other viral diseases; Z12.5 Encounter for screening for malignant neoplasm of prostate
CPT/HCPCS: 36415; 84153; 86704; 86706; 86803; 87340; 83036

== ENCOUNTER → 2024-11-21 12:53 | Outpatient (BNVA) | payer MEDICARE, BC, SELFPAY | PROVIDERS: PCP Family Medicine; Referring Provider Family Medicine; Visit Provider Nurse Practitioner Gerontology | DX: Z85.51 Personal history of malignant neoplasm of bladder (principal); Z87.442 Personal history of urinary calculi; Z72.0 Tobacco use | CPT/HCPCS: 99215; 81002 ==

== ENCOUNTER 2025-01-04 06:11 | Day surgery (SDC) | payer MEDICARE, BC, SELFPAY ==
[2025-01-04] VITALS (15 sets, daily range): BP systolic 94–141; BP diastolic 57–82; PULSE 60–71; RESP 11–21; TEMP 36.2–36.5; O2SAT 94–99; BMI 28.3
--- NOTE | 2025-01-04 06:45 | HPE_ITS ---
Date of service: 01/04/25 Time of Service: 06:45 Assessment and Plan Assessment and plan (1) Bladder cancer: Status: Acute Assessment and plan: We will perform surveillance cystoscopy today. We will be prepared to do transurethral resection of any visible abnormalities in the bladder. If no abnormality is seen, we will obtain a urine cytology. If there is no evidence of tumor recurrence, we may want to consider following with cytology alone as it has been over 5 years since his last occurrence. History of Present Illness History of Present Illness Chief Complaint: Bladder cancer Narrative: This is a 69-year-old gentleman who has a history of urothelial cell carcinoma of the bladder. His previous care had been received at [facility]. He has never had a cystoscopy here at our facility. His bladder tumors have been noninvasive. In addition to transurethral resection, he was treated with intravesical BCG. It sounds as if he had an induction series of BCG but I do not find any record of a maintenance dose. It has been over 10 years since his last occurrence. He is not having any gross hematuria. He presents now for surveillance cystoscopy. Review of Systems Narrative: No fevers or chills No vision change or dysphasia No diabetes or thyroid dysfunction No shortness of breath, cough or hemoptysis No chest pain or palpitations No nausea, vomiting, hepatitis, ulcers, jaundice No seizures, strokes or peripheral neuropathy No bleeding disorders or anemia No gout Anxiety PFSH All Active Problems (Updated 01/04/25 @ 07:17 by Bi Green MD) History of bladder cancer (Acute) Skull lesion (Acute) Acute knee pain (Acute) Hip pain, right (Acute) Umbilical hernia (Acute) Erectile dysfunction (Acute) Prediabetes (Acute) Hyperlipemia (Acute) Tobacco abuse (Acute) Lyme disease (Acute) Depression (Chronic) Conjunctivitis (Acute) Chronic anxiety (Acute) Bladder cancer (Acute) Attention deficit disorder (ADD) without hyperactivity (Acute) Acute medial meniscus tear (Acute 03/27/16) RIGHT KNEE Mood disorder (Acute) Pneumonia (Acute) Allergic conjunctivitis of both eyes (Acute) Surgical History Hx of umbilical hernia repair (~02/2024) laparoscopic History of colonoscopy (~01/11/20) Colon polyp, hyperplastic (~01/11/20) Dr. Astrid Villalobos, repeat colo 10 years Vasectomy 01/2005 TURBT 2011; DR. CARTER [address] Tillman Shoulder Surgery 11/2003 Repair, Tendon or Muscle BICEP TENDON REPAIR-2001 [address] ALVAREZ Repair of inguinal hernia (01/13/06) LEFT; DR. SMITH Tooth extraction 04/2015; FULL UPPER AND PARTIAL LOWER Cystoscopy w/ Bladder Bx 11/05/11- LEFT BX URETH Cystoscopy 06/02/12, 02/04/12, 11/05/11, 05/28/11, 02/26/11, 11/20/10, 2010, 2009 Family History Father , 72 Essential hypertension Depression Heart disease Hyperlipidemia Cancer Sister Scoliosis Essential hypertension Sister , age 67 Hyperlipidemia Hypertension Paternal Grandfather , 72 Alcohol abuse Maternal Grandmother , 95 Depression Brother No problems noted. Maternal Grandfather , 96 No problems noted. Paternal Grandmother , 72 No problems noted. Mother , age 95 Dementia Social History Smoking/Tobacco Use Status: Current every day Tobacco Type: pipe Tobacco: How many years used: 50 Smokeless tobacco user: other Quit status: not considering quitting Second Hand Exposure: Yes Smoking risk assessment performed?: Yes Alcohol Intake: current Alcohol Intake frequency: a few times a week Alcohol type: beer Drug use: Never Substance use type: does not use Counseling given: No Caregiver/Support person: Yes Household members: spouse Housing: house Communication Needs: None Do you need help understanding health information?: Rarely Pets and animals: Yes Pets and animals: cat(s) and dog(s) Sexually active: Yes Do you think of yourself as: straight/heterosexual Current gender identity: male What is your relationship status?: How often do you talk on the phone with friends or family?: three or more times per week How often do you get together with friends or relatives?: twice per week How often do you attend mosque or congregational services?: 1-3 times per year Do you belong to any clubs or organized social groups?: yes Panel score (0-1 are the most socially isolated patients): 3 Duration: 15-30 minutes/day Frequency: 3-4 times per week Humera/Caodaism: No preference Special humera needs: No Seatbelt use: always Helmet use: Yes Helmet use: sometimes Drive intox or ride w/intox high lift driver: No Meds Allergies and Home Medications Allergies Allergy/AdvReac Type Severity Reaction Status Date / Time peach Allergy Intermediate HIVES Verified 01/04/25 06:32 almond Allergy Unknown HIVES Verified 01/04/25 06:32 sildenafil (From Viagra) AdvReac Mild Headache Verified 01/04/25 06:32 Home Medications ?Medication ?Instructions ?Recorded ?Confirmed ?Type acetaminophen 500 mg tablet 500 mg PO Q6H PRN 01/04/20 01/04/25 History (Tylenol Extra Strength) ibuprofen 200 mg capsule 200 mg PO Q6H PRN 01/04/20 0 01/04/25 History tadalafil 20 mg tablet 10 - 20 mg (0.5 - 1 x 20 mg) PO 08/04/23 01/04/25 Rx DAILY PRN sexual activity #30 tabs epinephrine 0.3 mg/0.3 mL 0.3 mg IM PRN 01/19/2410/24 History injection, auto-injector tamsulosin 0.4 mg capsule 0.8 mg (2 x 0.4 mg) PO DAILY #180 04/20/24 01/04/25 Rx tab-caps venlafaxine 75 mg capsule,extended 75 mg PO DAILY #90 caps 10/11/24 01/04/25 Rx release 24 hr (Effexor XR) alprazolam 1 mg tablet (Xanax) 1 mg PO daily prn #15 t ab-caps 12/13/24 01/04/25 Rx dextroamphetamine-amphetamine 10 10 - 20 mg (1 - 2 x 1 0 mg) PO BID 12/13/24 01/04/25 Rx mg tablet #84 tabs Exam Const General: cooperative and anxious Neck Neck: supple Resp Effort & Inspection: normal respiratory effort Auscultation: clear to auscultation bilaterally Cardio Rate: regular rate Rhythm: regular rhythm GI Inspection: normal to inspection Palpation: soft and no masses Neuro General: patient alert, patient awake and patient oriented x3 Results Last Vital Signs Temp 36.4 C L 01/04/25 06:36 Pulse 67 01/04/25 06:36 Resp 16 01/04/25 06:36 Pulse Ox 96 01/04/25 06:36 Time Spent Time spent with Patient: <40 minutes Time was spent: other
[2025-01-04] MEDS: Lactated Ringers 1,000 ML 80 ML IV (06:58)
--- NOTE | 2025-01-04 07:05 | ANES.PREOP_ITS ---
General Info Date of Service Date Performed: 01/04/25 Height: 5 ft 7 in Weight: 82 kg Body Mass Index (BMI): 28.3 Surgical Procedure: Operation Date: 01/04/25 07:40 Proposed Procedure Side Surgeon p Cystoscopy Possible Transurethral Resection Bladder Tumor Bi Green MD Meds Allergies and Home Medications Allergies Allergy/AdvReac Type Severity Reaction Status Date / Time peach Allergy Intermediate HIVES Verified 01/04/25 06:32 almond Allergy Unknown HIVES Verified 01/04/25 06:32 sildenafil (From Viagra) AdvReac Mild Headache Verified 01/04/25 06:32 Home Medication ?Medication ?Instructions ?Recorded acetaminophen 500 mg tablet 500 mg PO Q6H PRN 01/04/20 (Tylenol Extra Strength) ibuprofen 200 mg capsule 200 mg PO Q6H PRN 01/04/20 tadalafil 20 mg tablet 10 - 20 mg (0.5 - 1 x 20 mg) PO 08/04/23 DAILY PRN sexual activity #30 tabs epinephrine 0.3 mg/0.3 mL 0.3 mg IM PRN 01/19/24 injection, auto-injector tamsulosin 0.4 mg capsule 0.8 mg (2 x 0.4 mg) PO DAILY #180 04/20/24 tab-caps venlafaxine 75 mg capsule,extended 75 mg PO DAILY #90 caps 10/11/24 release 24 hr (Effexor XR) alprazolam 1 mg tablet (Xanax) 1 mg PO daily prn #15 t ab-caps 12/13/24 dextroamphetamine-amphetamine 10 10 - 20 mg (1 - 2 x 1 0 mg) PO BID 12/13/24 mg tablet #84 tabs Current Visit Medications: Current Medications Generic Name Dose Route Start Last Admin Trade Name Freq PRN Reason Stop Dose Admin Ringer's Solution 1,000 mls @ 80 mls/hr 01/04/25 06:00 01/04/25 06:58 IV 01/04/25 23:59 80 mls/hr INFUSION NINA Administration Cefazolin Sodium/Dextrose 2 gm in 50 mls @ 100 mls/hr 01/04/25 06:00 Ancef Duplex IVPB 01/04/25 23:59 PREOP NINA IV Miscellaneous Supplies 1 each 01/04/25 06:00 Iv Access IV 01/04/25 23:59 DIRECTED NINA Sodium Chloride 0 ml 01/04/25 06:00 Normal Saline Flush 10 Ml Syr IV 01/04/25 23:59 PRN PRN Sodium Chloride 0 ml 01/04/25 06:00 Normal Saline 10 Ml Vial IJ 01/04/25 23:59 DIRECTED PRN Sterile Water 0 ml 01/04/25 06:00 Water,Injection,Sterile 10 Ml Vial IJ 01/04/25 23:59 DIRECTED PRN PFSH Active Problems Active Problems: Problem Status Onset Code History of bladder cancer Acute Z85.51 Skull lesion Acute M89.9 Acute knee pain Acute M25.569 Hip pain, right Acute M25.551 Umbilical hernia Acute K42.9 Erectile dysfunction Acute N52.9 Prediabetes Acute R73.03 Hyperlipemia Acute E78.5 Tobacco abuse Acute Z72.0 Lyme disease Acute A69.20 Depression Chronic F32.9 Conjunctivitis Acute H10.9 Chronic anxiety Acute F41.9 Bladder stones Acute N21.0 Bladder cancer Acute C67.9 Attention deficit disorder (ADD) without hyperactivity Acute F98.8 Acute medial meniscus tear Acute 16 S83.249A Mood disorder Acute F39 Pneumonia Acute J18.9 Allergic conjunctivitis of both eyes Acute H10.13 Medical History Medical History Comments:: VASOVAGAL W/ SYNCOPE: PT. REQUESTS LAYING DOWN WITH STARTING IV, COOL WASH CLOTH ON FORHEAD- MOST SKILLED IV STARTER 1ST TIME Surgical History Surgical History Hx of umbilical hernia repair (~02/2024) laparoscopic History of colonoscopy (~01/11/20) Colon polyp, hyperplastic (~01/11/20) Dr. Astrid Villalobos, repeat colo 10 years Vasectomy 01/2005 TURBT 2011; DR. CARTER [address] Tillman Shoulder Surgery 11/2003 Repair, Tendon or Muscle BICEP TENDON REPAIR-2001 Menis[address] ALVAREZ Repair of inguinal hernia (01/13/06) LEFT; DR. SMITH Tooth extraction 04/2015; FULL UPPER AND PARTIAL LOWER Cystoscopy w/ Bladder Bx 11/05/11- LEFT BX URETH Cystoscopy 06/02/12, 02/04/12, 11/05/11, 05/28/11, 02/26/11, 11/20/10, 2010, 2009 Tobacco Smoking/Tobacco Use Status: Current every day Tobacco Type: pipe Smokeless tobacco user: other Passive smoking exposure: No Second hand exposure: Yes Alcohol Alcohol Intake: current Alcohol intake frequency: a few times a week Alcohol type: beer Substance Use Substance use: Never Substance use type: does not use Vital Signs and Lab Results Vital Signs Most Recent Vital Signs in EMR: Most Recent Vital Signs Temp Pulse Resp BP Pulse Ox 36.4 C L 67 16 119/78 96 01/04/25 06:36 01/04/25 06:36 01/04/25 06:36 01/04/25 06:36 01/04/25 06:36 Anesthesia Assessment and Plan Anesthesia History Personal History: No History of Anesthesia Complications Family History: No Family History of Anesthesia Complications Exercise Tolerance Exercise Tolerance: Metabolic Equivalents>4 Pertinent Negatives Pertinent Negatives: No Symptoms of GERD, No Major Cardiovascular Symptoms or Complaints and No Major Pulmonary Symptoms or Complaints Cardiac & Pulmonary Exam Cardiac Exam: Normal S1/S2 Heart Sounds Pulmonary Exam: Clear Bilateral Breath Sounds Implantable Cardiac Device Does patient have a Pacemaker or an ICD?: No Airway Exam Known Difficult Airway: No Mallampati Class: 2 Mouth Opening: Normal (> 3cm) Thyromental Distance: Greater than 3 cm Neck Range of Motion: Full ROM Neck Circumference: Normal Teeth Condition: Removable Dentures/Plates Upper and Removable Dentures/Plates Lower (Bridge) ASA Classification ASA Score: ASA 2 Emergency Case?: No NPO Status NPO Status: NPO Clears >2 hours, Solids >8 hours Anesthesia Plan Resuscitation Status: Full Code Anesthesia Technique: General Anesthesia Airway Planned: Natural Airway Monitors Used: Standard Monitors
[2025-01-04] MEDS: ceFAZolin 2 GM/50 ML BAG IVPB (07:39)
--- NOTE | 2025-01-04 07:55 | PAPNONF_PTH ---
PATIENT: Dawit Guillory LOC: [facility] U#:[id number] AGE/SX: 69/M ROOM: RE01/04/[address]: Bi Green MD : [id number] BED: DIS: 01/04/2025 SPEC #: [id number] RECD: 01/04/25 12:44 STATUS: CAROLINE REQ #: [id number] BENOIT: 01/04/25 07:[address]: Bi Green DEPT: [facility] Cytology RECD BY: Laureen Medley ENTERED: 01/04/25 12:44 SP TYPE: VIRY CARSON DR: Power Collins MD Tissues: 1 - BODY FLUID CYTO(SPUTUM/URINE)[facility] Procedures: BODY FLUID CYTO(URINE/SPUTUM) Comments: [id number] (TV = 90 ml) (REFRIGERATED) (45 ml URINE & 30 ml CYTOLYT ADDED IN 2 CONTAINERS)
[2025-01-04] MEDS: Lidocaine 2% Jelly 11 ML SYR (08:00)
--- NOTE | 2025-01-04 08:06 | W.PM.DSUDISC ---
Date of service: 01/04/25 Discharge Plan Disposition Patient Disposition: Home Condition: Stable Discharge Details Reason For Visit: cystoscopy Attending Provider: Bi Green Primary Care Provider: Power Collins Home Meds and New Rx's Prescriptions: No Action acetaminophen [Tylenol Extra Strength] 500 mg tablet 500 mg PO Q6H PRN ibuprofen 200 mg capsule 200 mg PO Q6H PRN tamsulosin 0.4 mg capsule 0.8 mg PO DAILY Qty: 180 3RF tadalafil 20 mg tablet 10 - 20 mg PO DAILY PRN (Reason: sexual activity) Qty: 30 3RF Rx Instructions: administer approximately 30min before sexual activity; do not use more than 1 dose per 24hrs venlafaxine [Effexor XR] 75 mg capsule,extended release 24hr 75 mg PO DAILY Qty: 90 3RF dextroamphetamine-amphetamine 10 mg tablet 10 - 20 mg PO BID MDD 3 pills Qty: 84 0RF Rx Instructions: 10 mg AM; 20 mg PM alprazolam [Xanax] 1 mg tablet 1 mg PO daily prn Qty: 15 0RF epinephrine 0.3 mg/0.3 mL auto-injector 0.3 mg IM PRN Patient Comments: USE DIRECTED Discharge Instructions Additional Instructions: Followup in 1 to 2 weeks to review cytology results (either by phone or in person) Stand Alone Forms: Anesthesia Discharge InstTemo Hampton (DSU) Activity:: Activity as Tolerated Shower/Bathe:: 24 hours Diet:: As Tolerated Discharge Orders Discharge Orders: Discharge Order (Routine); Ordered 01/04/25 Ordered By: Bi Green DS: Diagnosis Discharge Diagnosis (1) Bladder cancer: Status: Acute
--- NOTE | 2025-01-04 08:07 | W.PM.OP ---
Operative Note Operative Note PRE-OP DIAGNOSIS: Bladder cancer POST-OP DIAGNOSIS: same PROCEDURE: Cystoscopy SURGEON: Bi Green ANESTHESIA TYPE: Local By Surgeon and General LMA/ETT Refer to Anesthesia Record ESTIMATED BLOOD LOSS: 5 PATHOLOGY: other (Urine for cytology) COMPLICATIONS: None Patient was transported to: PACU Patient's condition: stable Implants: none Indications: This is a 69-year-old gentleman who has a history of noninvasive urothelial cell carcinoma of the bladder. His initial diagnosis was well over 10 years ago. He has been treated with transurethral resections and an induction series of intravesical BCG. He has not had a recurrence in over 5 years. He presents now for surveillance cystoscopy Findings: Right sided bladder diverticulum No visible papillary or nodular lesions Procedure Description: The patient was given IV antibiotics and brought to the operating room on 01/04/2025. After successful induction of general anesthesia, he was placed in the dorsal lithotomy position. His genitalia was prepped with Betadine and draped. 2% Xylocaine jelly was then instilled into the urethra. The 22 Faroese rigid cystoscope was passed through the urethra into the bladder. The urethra and bladder were inspected using the 30 degree lens. The pendulous, bulbar and membranous urethra all appeared normal with no strictures. The prostatic urethra showed some lateral lobe enlargement but no significant median lobe. The bladder was entered and urine was collected directly from the bladder. The urine was sent to the lab for cytology. The bladder was then inspected with the 30 degree lens. Both ureteral orifices appeared normal with no blood coming from either side. Behind the right ureteral orifice there was a surgical scar along with a few diverticuli. The largest of the diverticuli was [place] and I was able to pass the cystoscope into the lumen. No filling defects were seen in the lumen of the diverticulum. The remainder of the bladder appeared trabeculated with no papillary or nodular lesions. These findings in the bladder were confirmed on reinspection of the bladder with a 70 degree lens. The bladder was then emptied and the cystoscope was withdrawn. Based on today's examination, there is no evidence of tumor recurrence. The patient tolerated this procedure well with no complications. He was taken to the recovery room in stable condition. Date of Procedure: 01/04/25
--- NOTE | 2025-01-04 08:41 | W.ANESPOSTOP ---
Postoperative Evaluation Date, Time and Location Date Performed: 01/04/25 Time Performed: : Patient Location: PACU Vital Signs Most Recent Imported Vital Signs: Most Recent Vital Signs Temp Pulse Resp BP Pulse Ox 36.5 C 60 14 94/57 L 96 01/04/25 08:24 01/04/25 08:36 01/04/25 08:36 01/04/25 08:36 01/04/25 08:36 Most Recent Vital Signs Temp Pulse Resp BP Pulse Ox 36.5 C 60 14 94/57 L 96 01/04/25 08:24 01/04/25 08:36 01/04/25 08:36 01/04/25 08:36 01/04/25 08:36 Pain Score Most Recent Pain Score: Most Recent Pain Score Pain Level 2 01/04/25 08:24 Assessment Mental Status: Awake (Alert & Oriented to Patient Baseline) Airway and Respiratory Function: Patent airway with normal (patient baseline) respiratory exam Cardiovascular Function: Hemodynamically Stable Hydration Status: Adequately Hydrated Nausea & Vomiting: No Nausea or Vomiting Pain: Pain is tolerable per patient Peripheral Nerve Block: Patient did not receive a nerve block
[2025-01-04] MEDS: Phenazopyridine 200 MG TAB PO (08:58)
== END 2025-01-04 09:39 | disposition home or self-care (01) ==
PROVIDERS: PCP Family Medicine; Visit Provider Urology
PROC: 0TBB8ZZ Excision of Bladder, Via Natural or Artificial Opening Endoscopic (ICD-10-PCS; CPT 52000; principal; 2025-01-04 07:30)
DX: Z08 Encounter for follow-up examination after completed treatment for malignant neoplasm (principal); Z85.51 Personal history of malignant neoplasm of bladder
CPT/HCPCS: 52000; 88104; J0690; J2003; J2371; J2405; J2704; J3010

== ENCOUNTER → 2025-01-30 09:01 | Outpatient (BNVA) | payer MEDICARE, BC, SELFPAY | PROVIDERS: PCP Family Medicine; Referring Provider Family Medicine; Visit Provider Urology | DX: C67.9 Malignant neoplasm of bladder, unspecified (principal) | CPT/HCPCS: 99213 ==